=== PATIENT | female | born 1985 | race Caucasian/White ===

== ENCOUNTER 2019-09-29 08:02 | Emergency (ER) | payer OTHER, SELFPAY ==
[2019-09-29 08:10] VITALS: BP 105/62; PULSE 65; RESP 18; TEMP 36.9; O2SAT 99
--- NOTE | 2019-09-29 08:20 | ED.EAR ---
HPI - Ear Problem General Chief complaint: Ear Stated complaint: ear pain Time Seen by Provider: 09/29/19 08:13 Source: patient and RN notes reviewed Mode of arrival: ambulatory Limitations: no limitations History of Present Illness HPI Narrative: 34-year-old female presents with concern for bilateral ear pain for 3 days. Reports pain had been worse on the left, this morning woke up with right ear pain. Denies drainage from the ear, fever, cough. Reports occasional rhinorrhea and nasal congestion. Reports occasionally taking Claritin. Reports using [id number] eardrops last night with no relief. Complaint: ear pain Location: bilateral Related Data Home Medications Medication Instructions Recorded Confirmed fluoxetine 20 mg PO DAILY 09/29/19 09/29/19 Allergies Allergy/AdvReac Type Severity Reaction Status Date / Time morphine AdvReac Unknown Nausea and Verified 09/29/19 08:16 Vomiting Review of Systems Review of Systems: Narrative: CONSTITUTIONAL: Denies malaise, chills, sweats, or fever. EYES: Denies visual changes, redness, or discharge. ENT: Reports rhinorrhea, congestion, bilateral otalgia. Denies sinus pain, otalgia and sore throat. CARDIOVASCULAR: Denies chest pain, palpitations, or edema. RESPIRATORY: Denies cough or dyspnea. GASTROINTESTINAL: Denies abdominal pain, nausea, vomiting, diarrhea SKIN: Denies rash or itching. MUSCULOSKELETAL: Denies myalgia. NEUROLOGIC: Denies headache. All systems reviewed & are unremarkable except as noted in HPI and below PMFSH Comments At time of signature, agree with nursing past medical, surgical, social and family history. There is no relevant family history pertinent to the presenting complaint Exam Narrative: Exam Narrative: GENERAL: Well-appearing, well-nourished, and in no acute distress. HEAD: Normocephalic EYES: PERRLA, conjunctivae clear ENT: Nares clear, turbinates erythematous, clear discharge. Mucous membranes moist. TM pearly gamboa with dull light reflex bilaterally; no tragal tenderness. NECK: Supple. No lymphadenopathy CHEST: No respiratory distress, speaks in full sentences. HEART: Regular rate and rhythm. No murmur heard. SKIN: Warm, dry, no rash. NEURO: Alert and oriented x3. PSYCH: Normal mood and affect Course Course Emergency Course: Patient is aware of diagnosis, understands and agrees to treatment plan. Anticipatory guidance given. Patient agrees to follow-up as directed and is aware of reasons to seek care at the emergency department. Portions of this record may have been created with voice recognition software Vital Signs Vital signs: Vital Signs Temperature 98.5 F 09/29/19 08:10 Pulse Rate 65 09/29/19 08:10 Respiratory Rate 18 09/29/19 08:10 Blood Pressure 105/62 09/29/19 08:10 Pulse Oximetry 99 09/29/19 08:10 Temperature 98.5 F 09/29/19 08:10 Pulse Rate 65 09/29/19 08:10 Respiratory Rate 18 09/29/19 08:10 Blood Pressure 105/62 09/29/19 08:10 Pulse Oximetry 99 09/29/19 08:10 Reviewed. Medical Decision Making MDM Narrative Medical decision making narrative: Differential diagnosis considered: Strep pharyngitis, allergic rhinitis, upper respiratory tract infection, sinusitis, rhinosinusitis, nasopharyngitis. viral pharyngitis, otitis media, otitis externa, pneumonia, bronchitis, viral cough syndrome, viral syndrome, and influenza. Exam findings show no acute concerns or changes; patient is non-toxic appearing and is in no distress. Patient is appropriate for outpatient treatment and follow-up. Vital Signs Vital Signs: Vital Signs Temperature 98.5 F 09/29/19 08:10 Pulse Rate 65 09/29/19 08:10 Respiratory Rate 18 09/29/19 08:10 Blood Pressure 105/62 09/29/19 08:10 Pulse Oximetry 99 09/29/19 08:10 Temperature 98.5 F 09/29/19 08:10 Pulse Rate 65 09/29/19 08:10 Respiratory Rate 18 09/29/19 08:10 Blood Pressure 105/62 09/29/19 08:10 Pulse Oximetry 99 06
== END 2019-09-29 08:25 | disposition home or self-care (01) ==
PROVIDERS: Emergency Provider Nurse Practitioner; PCP Nurse Practitioner Family
DX: H92.03 Otalgia, bilateral (principal); F41.9 Anxiety disorder, unspecified
CPT/HCPCS: 99213; G0463

== ENCOUNTER 2020-12-17 08:56 | Emergency (ER) | payer OTHER, SELFPAY ==
[2020-12-17 09:01] VITALS: BP 108/74; PULSE 75; RESP 20; TEMP 36.6; O2SAT 98
--- NOTE | 2020-12-17 09:04 | ED.URI ---
HPI - URI/Sore Throat General Chief Complaint: Ear Stated Complaint: Left Ear pain Time Seen by Provider: 12/17/20 09:02 Source: patient and RN notes reviewed Mode of arrival: ambulatory History of Present Illness HPI Narrative: 35-year-old female presents to the [facility] with left ear pain since , 2 days ago. No other sinus symptoms. Had been using your oil with minimal to no relief. Has been taking ibuprofen. Denies fevers. Related Data Home Medications Medication Instructions Recorded Confirmed fluoxetine 40 mg PO DAILY 12/17/20 12/17/20 Allergies Allergy/AdvReac Type Severity Reaction Status Date / Time morphine AdvReac Unknown Nausea and Verified 12/17/20 09:08 Vomiting Review of Systems Review of Systems: All systems reviewed & are unremarkable except as noted in HPI and below Constitutional: Constitutional: Reports no additional constitutional complaints, Denies chills and Denies fever(s) Eyes: Eyes: Reports no additional eye complaints ENT: Reports as per HPI Comments: Left ear pain Cardiovascular: Cardiovascular: Reports no additional cardiovascular complaints and Denies chest pain Respiratory: Respiratory: Reports no additional respiratory complaints, Denies cough and Denies dyspnea Gastrointestinal: Gastrointestinal: Reports no additional gastrointestinal complaints, Denies abdominal pain, Denies nausea and Denies vomiting Genitourinary: Genitourinary: Reports no additional female genitourinary complaints Musculoskeletal: Musculoskeletal: Reports no additional musculoskeletal complaints Integumentary/Breasts: Skin/Breast: Reports system reviewed and no additional complaints, except as docu Neurologic: Reports system reviewed and no additional complaints, except as documented Psychiatric: Psychiatric: Reports no additional psychiatric complaints Allergic/Immunologic: Allergic/Immunologic: Reports no additional allergic/immunologic complaints, Denies lip swelling, Denies throat swelling, Denies tongue swelling and Denies wheezing [facility] Past Medical History Medical History (Updated 12/17/20 @ 09:15 by Anna Childress) Anxiety and depression Surgical History Surgical History (Updated 12/17/20 @ 09:11 by Anna Childress) H/O knee surgery Left knee June 2020 Social History Social History (Updated 12/17/20 @ 09:11 by Anna Childress) Smoking status: Never smoker Substance use: never Living arrangements: with family Additional living arrangements comments: and 3 children Occupation/Education: occupation Gender identity (if verbalized by the patient): Female Comments At the time of my signature, I reviewed and agree with the nursing past medical, surgical, social, and family history. There is no relevant family history pertinent to the patient complaint. Exam Const: General: healthy appearing, no acute distress and alert Nutritional Appearance: well nourished and obese Orientation/consciousness: patient oriented x3 HENMT: Head: normal to inspection Ears: external ears normal, Abnormal EAC present excessive cerumen on the left, erythema on the left and EAC tenderness on the left and TM abnormal erythematous on the left Face and sinus: normal facial exam Eyes: Conjunctivae: conjunctivae normal Pupils: Equal, round and reactive pupils present EOM: EOMs intact bilaterally Neck: Neck: normal visual inspection, no lymphadenopathy and no meningeal signs Chest: Chest palpation & inspection: normal inspection of the chest Resp: Effort & Inspection: normal respiratory effort Auscultation: clear to auscultation bilaterally Cardio: Rate: regular rate Rhythm: regular rhythm : General: Yes no CVA tenderness Skin: General skin exam: normal color Rashes: no rashes Wounds: no wounds Neuro: General: patient oriented x3, no meningeal signs and no focal motor deficits Extrem: General: normal to inspection and no pedal edema Course Course Em
== END 2020-12-17 09:16 | disposition home or self-care (01) ==
PROVIDERS: Emergency Provider Nurse Practitioner; PCP Nurse Practitioner Family
DX: H66.002 Acute suppurative otitis media without spontaneous rupture of ear drum, left ear (principal); F41.9 Anxiety disorder, unspecified; F32.9 Major depressive disorder, single episode, unspecified
CPT/HCPCS: 99213; G0463

== ENCOUNTER 2023-07-16 16:40 | Emergency (ER) | payer OTHER, BC, SELFPAY ==
[2023-07-16 16:48] VITALS: BP 121/74; PULSE 74; RESP 20; TEMP 36.8; O2SAT 100
--- NOTE | 2023-07-16 16:54 | ED.GENADULT ---
HPI - General Adult General Chief complaint: Urogenital-Female Stated complaint: Urinary Problem Source: patient, RN notes reviewed and old records reviewed Mode of arrival: ambulatory Limitations: no limitations History of Present Illness HPI narrative: 30-year-old female presents to [facility] with complaints of burning with urination with frequency, hematuria, suprapubic pain, lower back pain this started about 3 days ago. Patient states has been on amoxicillin for ear infection and thought it was getting yeast infection. Related Data Home Medications Medication Instructions Recorded Confirmed dulaglutide 4.5 mg/0.5 mL 4.5 mg subcut WEEKLY 07/16/23 07/16/23 subcutaneous pen injector (Trulicity) Allergies Allergy/AdvReac Type Severity Reaction Status Date / Time morphine AdvReac Unknown Nausea and Verified 07/16/23 16:55 Vomiting Review of Systems Constitutional: Constitutional: Reports no additional constitutional complaints, Denies body ache(s), Denies chills, Denies fatigue, Denies fever(s) and Denies headache(s) Eyes: Eyes: Reports no additional eye complaints and Denies blurry vision ENT: Reports system reviewed and no additional complaints, except as documented, Denies vertigo, Denies dizziness, Denies ear discharge, Denies otalgia, Denies facial pain, Denies headache(s), Denies nasal congestion, Denies nasal discharge, Denies sinus pain, Denies sinus pressure and Denies sore throat Cardiovascular: Cardiovascular: Reports no additional cardiovascular complaints, Denies chest pain, Denies chest pain at rest, Denies rapid heart rate and Denies dyspnea Respiratory: Respiratory: Reports no additional respiratory complaints, Denies chest congestion, Denies cough, Denies pain on inspiration, Denies pain with cough and Denies dyspnea Gastrointestinal: Gastrointestinal: Reports abdominal pain, Denies diarrhea, Denies nausea and Denies vomiting Genitourinary: Genitourinary: Reports hematuria, Reports nocturia and Reports dysuria Integumentary/Breasts: Skin/Breast: Denies rash Neurologic: Reports system reviewed and no additional complaints, except as documented, Denies vertigo, Denies dizziness and Denies headache(s) Endocrine: Endocrine: Denies fatigue PMFSH Past Medical History Medical History Anxiety and depression Surgical History Surgical History H/O knee surgery Left knee June 2020 Social History Social History Smoking status: Never smoker Substance use: never Living arrangements: with family Additional living arrangements comments: and 3 children Occupation/Education: occupation Gender identity (if verbalized by the patient): Female Comments At the time of my signature, I reviewed and agree with the nursing past medical, surgical, social, and family history. There is no relevant family history pertinent to the patient complaint. Exam Const: General: cooperative, healthy appearing, no acute distress and well nourished Nutritional Appearance: well nourished Orientation/consciousness: patient oriented x3 Limitations: no limitations HENMT: Head: normal to inspection and normocephalic Ears: external ears normal Face/Nose/Sinus: normal facial exam Face and sinus: normal facial exam Mouth: Yes Normal oral and palatal mucosa present, Yes oropharynx normal and Yes moist mucous membranes Eyes: General: appearance normal, both eyes and all related structures Sclera: sclerae normal Pupils: Equal, round and reactive pupils present Resp: Effort & Inspection: normal respiratory effort, able to speak in complete sentences, no audible wheezes, no cough, no respiratory distress and no retractions GI: GI Palp: Yes abdominal tenderness, Yes Soft to palpation, No Firmness to palpation present (GI), Yes Tender
== END 2023-07-16 17:10 | disposition home or self-care (01) ==
PROVIDERS: Emergency Provider Registered Nurse
DX: N30.01 Acute cystitis with hematuria (principal)
CPT/HCPCS: 81003; 87086; 87088; 99213; G0463

== ENCOUNTER 2024-01-18 10:52 | Emergency (ER) | payer OTHER, SELFPAY ==
[2024-01-18 10:58] VITALS: BP 104/71; PULSE 81; RESP 20; TEMP 36.9; O2SAT 100
--- NOTE | 2024-01-18 11:31 | ED.EAR ---
HPI - Ear Problem General Chief complaint: Ear Stated complaint: Left Ear Pain Time Seen by Provider: 01/18/24 11:20 Source: patient, RN notes reviewed and old records reviewed Mode of arrival: ambulatory Limitations: no limitations History of Present Illness HPI Narrative: 38 year old female who presents to [facility] care with complaints of left ear pressure for one week duration with some increased pain to left ear with no fevers and some decrease in hearing. Patient reports that he has no other upper respiratory symptoms of sinus congestion drainage, sore throat or cough. Patient has been taking Flonase nasal spray and also taking allergy medication. MD Complaint: ear pain, decreased hearing and other (pressure) Location: left ear Duration: constant Severity: moderate Discharge from ear: Reports no Treatment prior to arrival: other (flonase and allergy medication) Related Data Allergies Allergy/AdvReac Type Severity Reaction Status Date / Time morphine AdvReac Unknown Nausea and Verified 07/16/23 16:55 Vomiting Review of Systems Review of Systems: CONSTITUTIONAL: Denies malaise, chills, sweats, or fever. EYES: Denies visual changes, redness, or discharge. ENT: Reports no rhinorrhea, congestion, sinus pain, left otalgia and no sore throat. CARDIOVASCULAR: Denies chest pain, palpitations, or edema. RESPIRATORY: Reports no cough.? Denies dyspnea. GASTROINTESTINAL: Denies abdominal pain, nausea, vomiting, diarrhea SKIN: Denies rash or itching. MUSCULOSKELETAL: Denies myalgia. NEUROLOGIC: Denies headache. All systems reviewed & are unremarkable except as noted in HPI and below PMFSH Past Medical History Medical History Anxiety and depression Bronchitis Sinusitis Surgical History Surgical History H/O knee surgery Left knee June 2020 Social History Social History Smoking status: Never smoker Substance use: never Living arrangements: with family Additional living arrangements comments: and 3 children Occupation/Education: occupation Gender identity (if verbalized by the patient): Female Comments At time of signature, agree with nursing past medical, surgical, social and family history. There is no relevant family history pertinent to the presenting complaint Exam Narrative: GENERAL: Well-appearing, well-nourished, and in no acute distress. HEAD: Normocephalic EYES: PERRLA, conjunctivae clear ENT: Nares clear, turbinates edematous and erythematous, clear discharge. Mucous membranes moist. TM pearly gamboa with dull light reflex with some bulging of TM's bilaterally; no tragal tenderness. Oropharynx erythematous without lesions. Tonsils not enlarged and without exudate, no drooling, no hoarseness, no trismus, uvula midline. NECK: Supple. No lymphadenopathy CHEST: Clear to auscultation, breath sounds equal. No wheezing, rhonchi, rales, or stridor. No respiratory distress, speaks in full sentences no cough noted SAO2 100% on room air HEART: Regular rate and rhythm. No murmur heard. SKIN: Warm, dry, no rash. NEURO: Alert and oriented x3. PSYCH: Normal mood and affect Course Course Emergency Course: Patient is aware of diagnosis, understands and agrees to treatment plan.? Anticipatory guidance given.? Patient agrees to follow-up as directed and is aware of reasons to seek care at the emergency department. Portions of this record may have been created with voice recognition software Level of Care: Express Care Visit Vital Signs Vital signs: Vital Signs Temperature 36.9 C 01/18/24 10:58 Pulse Rate 81 01/18/24 10:58 Respiratory Rate 20 01/18/24 10:58 Blood Pressure 104/71 01/18/24 10:58 Pulse Oximetry 100 01/18/24 10:58 Oxygen Delivery Room Air 01/18/24 10:58 T
== END 2024-01-18 11:49 | disposition home or self-care (01) ==
PROVIDERS: Emergency Provider Registered Nurse
DX: H69.93 Unspecified Eustachian tube disorder, bilateral (principal)
CPT/HCPCS: 99213; G0463

== ENCOUNTER 2024-07-22 16:44 | Emergency (ER) | payer OTHER, SELFPAY ==
[2024-07-22 16:48] VITALS: BP 120/68; PULSE 73; RESP 20; TEMP 36.6; O2SAT 100
--- NOTE | 2024-07-22 17:10 | ED_ITS ---
HPI - Female Genitourinary General Chief complaint: [employer] Stated complaint: discomfort in the groin area Time Seen by Provider: 07/22/24 17:16 Source: patient and RN notes reviewed Mode of arrival: ambulatory Limitations: no limitations History of Present Illness HPI Narrative: 39-year-old female presented for complaint of pain and itching to vaginal area Along with foul odor for 4 days. Endorses symptoms started after dyspareunia. She is concerned for retained tampon. Says LMP approximately 1 week ago. patient denies specific concern for an STD, however she would like tested. Denies hematuria, nausea, vomiting, flank pain, constipation, diarrhea, fevers or chills. Related Data Allergies Allergy/AdvReac Type Severity Reaction Status Date / Time morphine AdvReac Unknown Nausea and Verified 07/22/24 16:58 Vomiting Review of Systems Review of Systems: CONSTITUTIONAL: Denies body aches, fever, chills, or sweats. CARDIOVASCULAR: Denies chest pain, palpitations, or edema. RESPIRATORY: Denies cough or dyspnea. GASTROINTESTINAL: Denies abdominal pain, nausea, vomiting, or diarrhea. GENITOURINARY: reports vaginal itching, odor denies dysuria, frequency, urgency, hematuria, flank pain SKIN: Denies rash MUSCULOSKELETAL: Denies back pain or myalgia. COUNTS INCLUDE 234 BEDS AT THE [facility] Past Medical History Medical History Anxiety and depression Bronchitis Sinusitis Surgical History Surgical History H/O knee surgery Left knee June 2020 Social History Social History Smoking status: Never smoker Substance use: never Living arrangements: with family Additional living arrangements comments: and 3 children Occupation/Education: occupation Gender identity (if verbalized by the patient): Female Comments At time of signature, I have reviewed and agree with nursing past medical, surgical, social and family history unless otherwise noted. Please see nursing chart for further information. There is no relevant family history pertinent to the presenting complaint Exam Narrative: GENERAL: Well-appearing ENT: Mucous membranes pink and moist. CHEST: No respiratory distress. Even unlabored. ABDOMEN: Soft, nontender, nondistended, normal active bowel sounds. No CVA tenderness : normal vaginal introitus, pink without foreign body, laceration or lesions. Scattered areas of erythema to cervix. Cervix closed. Thin yellow discharge noted. Tender. Chaperoned by Katie RN SKIN: Warm, dry, no rash. NEURO: No focal deficits. Alert and oriented x3. Gait steady. PSYCH: Normal affect. Course Course Emergency Course: Patient is aware of diagnosis, understands and agrees to treatment plan. Anticipatory guidance given. Patient agrees to follow-up as directed and is aware of reasons to seek care at the emergency department. Portions of this record may have been created with voice recognition software Level of Care: Express Care Visit Vital Signs Vital signs: Vital Signs Temperature 97.8 F 07/22/24 16:48 Pulse Rate 73 07/22/24 16:48 Respiratory Rate 20 07/22/24 16:48 Blood Pressure 120/68 07/22/24 16:48 Pulse Oximetry 100 07/22/24 16:48 Temperature 97.8 F 07/22/24 16:48 Pulse Rate 73 07/22/24 16:48 Respiratory Rate 20 07/22/24 16:48 Blood Pressure 120/68 07/22/24 16:48 Pulse Oximetry 100 07/22/24 16:48 Reviewed MDM - Female Genitourinary MDM Narrative Medical decision making narrative: Patient presenting with concern for pelvic pain and irritation. Swabs collected for BV, yeast, GC, chlamydia, trich. UA sent. Urine preg neg. Informed Pt will be contacted w/ results when they become available if they are positive. Discussed with patient that it takes up to 7 days for results of cultures to be released and explained that we may treat empirically at this time. Agreeable to treatment for BV at this time. I have instructed the patient to return to the ER at any time if there are any new or worsening symptoms. The patient expressed understanding of and agreement with this plan. Differential Diagnosis Differential diagnosis: Likely urinary tract infection, bacterial vaginosis, trichomoniasis, cervicitis, vaginitis and cystitis Lab Data Labs: Lab Results 07/22/24 07/22/24 Range/Units 17:35 17:43 POC Urine Color Yellow POC Urine Clarity Clear POC Urine pH 6.5 POC Ur Specif [place] 1.010 POC Urine Protein Negative (Negative) POC Ur Glucose (UA) Negative (Negative) POC Urine Ketones Negative (Negative) POC Urine Blood Negative (Negative) POC Urine Nitrite Negative (Negative) POC Urine Bilirubin Negative (Negative) POC Urine Urobilinogen 0.2 POC U Leukocyte Esteras Negative (Negative) POC Urine HCG, Qual Negative (Negative) Discharge Plan Discharge Clinical Impression: Vaginitis Patient Disposition: Home Condition: Stable Instructions: Antibiotic Form, Bacterial Vaginosis (ED) Additional Instructions: Your urine will be sent of for a culture to determine if bacteria is causing your symptoms. If the culture shows a UTI, you will be notified and an antibiotic will be called in for you. Tests been sent off to check for gonorrhea, chlamydia, and trichomonas infections as well as BV and yeast. You will be called if any of your tests come back positive. These tests can take up to 5-7 days to come back. You are treated for BV today. If your other tests come back positive you will need further treatment. You will need to notify any partners that you have so they can be tested and treated. To avoid reinfection, you are advised to abstain from sexual intercourse for 7 days (and any symptoms have resolved) to prevent transmission. If your tests come back negative and you are still experiencing symptoms, please follow-up with your PCP or Obgyn for further evaluation and treatment. If your symptoms worsen to include fever, abdominal pain, or back pain, please go to the hospital immediately. Patient Language: Nauruan Prescriptions: New metronidazole 500 mg tablet 500 mg PO Q12H 7 Days Qty: 14 0RF Follow-up/Referrals: Lindsay,MD Wayne [Primary Care Provider] - Time of Disposition: 17:29
--- OUTSIDE RECORDS SUMMARY | 2024-07-22 17:11 | XMS_ITS | Referral Summary ---
Author Organization [facility] Address [address] [place] [address] Care Team Providers Care Shellac Polisher Name Role Phone KristoferDyan azar Alesia REZA Unavailable [phone] Hammad Mueller Unavailable [phone] Wayne Montoya MD Primary Care Provider [phone] Encounters Date Type Department Care Team Description 07/13/2024 4:20 PM CDT Office Visit [facility] Orthopaedic Surgery [address] [place] [address] 2nd [address] [place] [address] Hussein Fay MD Left shoulder pain, unspecified chronicity (Primary Dx) 06/12/2024 7:48 AM SUPERVISOR DUMPING - 06/12/2024 11:59 PM SUPERVISOR DUMPING Hospital Encounter [facility] [address] [place] [address] Topher Henriquez MD Left shoulder pain, unspecified chronicity (Primary Dx) Discharge Disposition: Discharge to home or self care 06/05/2024 Telephone [facility] Orthopaedic Surgery [address] [place] [address] Medical Office Building [address] [place] [address] Topher Henriquez MD 06/05/2024 Telephone [facility] Orthopaedic Surgery [address] [place] [address] Medical Office Building [address] [place] [address] Topher Henriquez MD 05/29/2024 11:30 AM SUPERVISOR DUMPING Office Visit [facility] Orthopaedic Surgery [address] [place] [address] 2nd Floor [address] [place] [address] Hussein Fay MD Left shoulder pain, unspecified chronicity (Primary Dx) 05/27/2024 Telephone [facility] Orthopaedic Surgery [address] [place] [address] 2nd [address] [place] [address] Hussein Fay MD 05/21/2024 2:34 PM SUPERVISOR DUMPING - 05/21/2024 11:59 PM SUPERVISOR DUMPING Hospital Encounter [facility]iology [facility] [address] [place] [address] Hussein Fay MD Left shoulder pain, unspecified chronicity Discharge Disposition: Discharge to home or self care 05/13/2024 Orders Only [facility] Orthopaedic Surgery [address] [place] [address] 2[address] [place] [address] Hussein Fay MD 05/08/2024 9:07 AM SUPERVISOR DUMPING - 05/08/2024 11:59 PM SUPERVISOR DUMPING Hospital Encounter [facility] [address] [place] [address] Left shoulder pain, unspecified chronicity Discharge Disposition: Discharge to home or self care 05/08/2024 9:00 AM SUPERVISOR DUMPING Office Visit [facility] Orthopaedic Surgery [address] [place] [address] [address] [place] [phone] Hussein Fay MD Left shoulder pain, unspecified chronicity (Primary Dx) from Last 3 Months Allergies Active Allergy Reactions Criticality Noted Date Comments Iodinated Contrast Media Nausea & Vomiting Low 03/15 Morphine Stomach upset,Vomiting Low 10/06/2020 Medications Mounjaro 5 mg/0.5 mL pen injectorIndic ations:wt. loss Inject 0.5 mL (5 mg total) under the skin once a week Takes on 09/07/19 Active ibuprofen 200 mg tab/capIndica tions:Pain Take 2 tablet/capsule (400 mg total) by mouth every 6 (six) hours as needed for pain 2 tablets Active acetaminophen (TYLENOL) 500 mg tabletIndicat ions:Pain Take 2 tablets (1,000 mg total) by mouth every 6 (six) hours as needed for pain Active norgestimate- ethinyl estradioL (ORTHO TRI-CYCLEN LO) 0.18/0.215/0. 25 mg-25 mcg per tablet Take 1 tablet by mouth daily 28 tablet 12 05/07/19 24 2024 Discontinued Mounjaro 7.5 mg/0.5 mL pen injector injection INJECT 7.5 MG SUBCUTANEOUSLY ONCE A WEEK 04/10/202024 Discontinued meloxicam (MOBIC) 15 mg tablet Take 1 tablet (15 mg total) by mouth daily 30 tablet 05/13/192024 Discontinued Active Problems Problem Noted Date Diagnosed Date Subacromial bursitis of left shoulder joint 04/2024 Adhesive capsulitis of left shoulder 07/14/2024 BMI 24.0-24.9, adult 05/07/2023 Assessment & Plan (05/07/2023 3:59 PM SUPERVISOR DUMPING): Wt Readings from Last 3 Encounters: 05/07/23 63 kg (139 lb) 09/06/22 71 kg (156 lb 9.6 oz) 08/08/22 72.6 kg (160 lb) BMI Readings from Last 3 Encounters: 05/07/23 24.63 kg/m 04/22/23 27.74 kg/m 09/06/22 27.75 kg/m at goal of bmi <30 Continue diet and exercise BMI Follow-up includes: nutrition counseling and exercise counseling. TMJ (temporomandibular joint syndrome) Assessment & Plan (08/08/2022 3:22 PM CDT): Not at goal - worsening seevere pain at tiomes Will do course of flexeril Continue ibuprofen prn Can do course of prednisone 40 mg every day x 5 days and see if it improves Advised to seek chiro or dental advise Current vaping on some days 09/28/2021 Overview (09/28/2021): continue to cut back - can use a slow wean Assessment & Plan (05/07/2023 3:59 PM SUPERVISOR DUMPING): Improving but not at goal Anxiety 09/28/2021 Assessment & Plan (05/07/2023 3:53 PM SUPERVISOR DUMPING): Stable at this time No meds for now Assessment & Plan (09/28/2021 3:10 PM CDT): States anxiety is not well controlled - wants to continue the 30 mg of prozac as she states she has been doing well with it but when her family comes home, she states her anxiety levels increase and is unable to function properly at that time. Wants to try having a 2nd agent for anxiety. Will start wellbutrin. Was previously on buspar and she said that didn't work for her. Had a one time use of diazepam and she said worked but I would avoid bzd classdrugs and patient was in agreement. Sensorineural hearing loss (SNHL) of both ears 1 Assessment & Plan (04/12/2021 9:39 AM SUPERVISOR DUMPING): Hearing test - [facility] Flonase 2 sprays into each nostril while looking down over the sink, do not sniff in or blow nose after use for at least 30 minutes daily Referred otalgia of both ears 04/12/2021 Assessment & Plan (04/12/2021 9:40 AM SUPERVISOR DUMPING): TMJ dysfunction discussed and Handout provided Chronic pain of left knee 10/04/2020 Assessment & Plan (02/09/2021 9:05 AM CDT): Continue therapy per Ortho from recovery of her recent surgery Pes anserine bursitis 10/04/2020 Dislocation of left patella 06/16/2020 Overview (06/16/2020): Added automatically from request for surgery [id number] Patellar instability of left knee 06/16/2020 Overview (06/16/2020): Added automatically from request for surgery [id number] Depressive disorder 09/21/2016 Family history of heart disease 09/21/2016 Palpitations 09/21/2016 Tobacco dependence syndrome 09/21/2016 Resolved Problems Problem Noted Date Diagnosed Date Resolved Date Dislocation of jaw 08/08/2022 Dysfunction of both eustachian tubes 04/12/2021 09/28/2021 Assessment & Plan (04/12/2021 9:39 AM SUPERVISOR DUMPING): Hearing test - [facility] Flonase 2 sprays into each nostril while looking down over the sink, do not sniff in or blow nose after use for at least 30 minutes daily Class 1 obesity due to exces s calories without serious comorbidity with body mass index (BMI) of 34.0 to 34.9 in adult 02/09/2021 Assessment & Plan (08/08/2022 3:19 PM CDT): Wt Readings from Last 3 Encounters: 08/08/22 72.6 kg (160 lb) 02/26/22 88 kg (194 lb) 09/28/21 99.1 kg (218 lb 6.4 oz) BMI Readings from Last 3 Encounters: 08/08/22 28.35 kg/m 02/26/22 34.37 kg/m 09/28/21 38.70 kg/m Continue diet and exercise BMI Follow-up includes: nutrition counseling and exercise counseling. Has had singificant weight loss - now at goal Will continue trulicity for now 4.5 mg qweek Assessment & Plan (09/28/2021 3:10 PM CDT): BMI Follow-up includes: nutrition counseling and exercise counseling. Will check blood work and insulin/c-peptide Referred to weight loss management. Discussed diet and exercise Assessment & Plan (02/09/2021 9:07 AM CDT): The patient's weight of a BMI over 35 would qualify for weight loss surgery if she had associated comorbidities. We will call her insurance company and see if the recent orthopedic surgeries due to patellar tears secondary to her weight would qualify as an indication. If not we have discussed medical options for weight loss. Once we hear back from the insurance company will call her and discuss further. Smoker 10/04/2020 08/08/2022 Dyspnea on exertion 02/22/2017 08/09/19 Immunizations Immunization Administration Dates Next Due DTP 12/18/1990, 8,05/20/1986,02/18,1985 HiB 07/21/1987 Influenza, Quadrivalent, Spl it, Intramuscular 01/22/2020,04/14/2019,01/14/2018,02/01 Influenza, Unspecified 05/07/2023(Deferr ed: Patient Refused),02/26/2022(Deferred: Patient Refused),01/14/2020(Deferred: Patient Refused) MMR 12/18/1990,10/14/1986 OPV 12/18/1990, 8,05/20/1986,02/18,1985 Tdap 07/30/2022,04/14/2019 Social History Tobacco Use Types Packs/Day Years Used Date Smoking Tobacco: Former Cigarettes 2018 Vaping Started: 2018 Passive Smoke Exposure: Never Smokeless Tobacco: Never Alcohol Use Standard Drinks/Week Comments Yes 0 (1 standard drink = 0.6 oz pur e alcohol) AUDIT-C Answer Date Recorded Q1: How often do you have a drink containing alc ohol? Monthly or less 07/15/2024 Q2: How many drinks containi ng alcohol do you have on a typical day when you are drinking? 1 or 2 07/15/2024 Q3: How often do you have si x or more drinks on one occasion? Never 07/15/2024 PHQ-2 Answer Date Recorded PHQ-2 Total Score (If total score is 3 or more points, staff should administer the PHQ-9) 0 05/07/2023 Personal Safety Answer Date Recorded Have you ever been in or are you currently in a harmful physical or emotional relationship or is someone making you feel afraid or unsafe? Denies 06/12/2024 Comments No Sex and Gender Information Value Date Recorded Sex Assigned at Not on file Legal Sex Female 12:16 PM SUPERVISOR DUMPING Gender Identity Not on file Sexual Orientation Not on file Last Filed Vital Signs Vital Sign Reading Time Taken Comments Blood Pressure 102/62 06/12/2024 8:15 AM SUPERVISOR DUMPING Pulse 66 06/12/2024 8:15 AM SUPERVISOR DUMPING Temperature 36.8 C (98.2 F) 09/26/2023 4:31 PM CDT Respiratory Rate 16 06/12/2024 8:15 AM SUPERVISOR DUMPING Oxygen Saturation 100% 06/12/2024 8:15 AM SUPERVISOR DUMPING Inhaled Oxygen Concentration - - Weight 52.2 kg (115 lb) 07/15/2024 11:30 AM CDT Height 160 cm (5' 3 ) 07/15/2024 11:30 AM CDT Body Mass Index 20.37 07/15/2024 11:30 AM CDT Plan of Treatment Upcoming Encounters Date Type Department Care Team (Late st Contact Info) Description 07/28/2024 9:45 AM CDT Hospital Encounter [facility] the [facility] [address] [place] [id number] [place] [id number] [place] [address] 07/28/2024 9:45 AM CDT Anesthesia Event [facility] [address] [place] [address] Xiomy Fisher, HECTOR [address] [facility] [address] [phone] [place] [address] 07/28/2024 9:45 AM CDT - 07/28/2024 12:00 PM CDT Surgery [facility] [address] [place] [address] [place] [id number] [place] [address] LEFT SHOULDER ARTHROSCOPIC SUBACROMIAL DECOMPRESSION, SYNOVECTOMY, POSSIBLE OPEN BICEPS TENODESIS VS ARTHROSCOPIC SUPERIOR LABRAL REPAIR Scheduled Procedures Name Priority Associated Diagnoses Date/Ti me ARTHROSCOPY SHOULDER SUBACROMIAL DECOMPRESSION Subacromial bursitis of left shoulder joint Adhesive capsulitis of left shoulder 07/28/2024 9:45 AM CDT SYNOVECTOMY JOINT Subacromial bursitis of left shoulder joint Adhesive capsulitis of left shoulder 07/28/2024 9:45 AM CDT ARTHROSCOPY SHOULDER CAPSULORRHAPHY Subacromial bursitis of left shoulder joint Adhesive capsulitis of left shoulder 07/28/2024 9:45 AM CDT Medical Devices Implanted Type Area Jacker Device Identifier Shelf Expiration Date Model / Serial / Lot [employer] [id number] Seprafilm 6x5in Barrier Adhesion Sterile Disposable Latex Free - [id number] Implanted:Qty: 1 on 04/02/2019 by Irlanda Rodriguez MD at [facility] N/A: Ovary [employer] 10/13/2019 [id number] / / [id number] [employer] [id number] Tightrope Acl Right Device Fixation Titanium Uhmwpe Sterile Latex Free - [id number] Implanted:Qty: 1 on 06/30/2020 by Miko Flores MD at [facility] Left: Knee [employer] 08/12/2024 [id number] / / [id number] Ar[employer]rex Disposible Insturments Kit For Tenodesis Screw Implanted:Qty: 1 on 06/30/2020 by Miko Flores MD at [facility] Left: Knee [employer] 02/12/2025 [id number] / NA / [id number] Description:[facility] ITEM# [id number] IS FLAGGED IN [employer] AND SHOWING ACTIVE CHARGE CODE ASSIGNED [id number] COST EA. 175.00 [id number] Suture Knox Biocomposite Swivelock Implanted:Qty: 1 on 06/30/2020 by Miko Flores MD at [facility] Left: Knee [employer] 02/12/2022 [id number] / NA / [id number] Description:Item has been re quested to add to system and has been approved to charge patient and pay vendor. [id number] Suture Knox Biocomposite Swivelock Implanted:Qty: 1 on 06/30/2020 by Miko Flores MD at [facility] Left: Knee [employer] 02/12/2022 [id number] / NA / [id number] Description:Item has been re quested to add to system and has been approved to charge patient and pay vendor. [facility] [id number] Graft Soft Tissue Posterior Tibialis Tendon - [id number] Implanted:Qty: 1 on 06/30/2020 by Miko Flores MD at [facility] Left: Knee [facility] 02/28/2021 [id number] / / [id number] [employer] Ar-7535 Fiberlink Arthrex Suturetape 1.3mm Tape Suture Nonabsorbable - [id number] Implanted:Qty: 1 on 06/30/2020 by Miko Flores MD at [facility] Left: Knee [employer] 07/13/2024 [id number] / / [id number] Procedures Procedure Name Priority Date/Time Associated Diagnosis Comments FLUORO GUIDED INJECTION SHOULDER LEFT Schedule Routine, Read Routine (OP Routine) 06/12/2024 8:13 AM SUPERVISOR DUMPING Left shoulder pain, unspecified chronicity PA ARTHROCENTESIS ASPIR&/INJ MAJOR JT/BURSA W/O US Routine 05/29/2024 11:30 AM SUPERVISOR DUMPING Left shoulder pain, unspecified chronicity MRI SHOULDER LEFT WO CONTRAST Schedule Routine, Read Routine (OP Routine) 05/21/2024 3:49 PM SUPERVISOR DUMPING Left shoulder pain, unspecified chronicity XR SHOULDER LEFT 2 OR MORE VIEWS Schedule Routine, Read Routine (OP Routine) 05/08/2024 9:17 AM SUPERVISOR DUMPING Left shoulder pain, unspecified chronicity from Last 3 Months Results * FL Fluoro Guided Injection Shoulder Left (GLENOHUMERAL JOINT) (06/12/2024 8:13 AM SUPERVISOR DUMPING) Narrative [facility] - 06/12/2024 8:14 AM SUPERVISOR DUMPING The images from this study are not interpreted by Radiology. Please refer to the physician's procedure / OR operative note. us Hussein Fay MD IMG FLUOROSCOPY PROCEDUR ES Final Result [facility] * PA ARTHROCENTESIS ASPIR&/INJ MAJOR JT/BURSA W/O US (05/29/2024 11:30 AM SUPERVISOR DUMPING) Narrative Hussein Fay MD - 05/29/2024 11:30 AM SUPERVISOR DUMPING Hussein Fay MD 05/31/2024 12:47 PM Large Joint Injection: L subacromial bursa Performed by: Hussein Fay MD Authorized by: Hussein Fay MD Procedure Details: Location: Shoulder Site: L subacromial bursa Prep: patient was prepped and draped in usual sterile fashion Approach: Superior lateral Medications: 40 mg triamcinolone 40 mg/mL; 2 mL lidocaine 10 mg/mL (1 %); 2 mL BUPivacaine HCl 0.25 % (2.5 mg/mL) Patient tolerance: Patient tolerated the procedure with difficulty After Betadine prep to the posterolateral corner of the acromion, I injected 2 cc of 0.25% bupivacaine, 2 cc of 1% lidocaine and 40 mg of Kenalog. The patient tolerated the procedure well. us Hussein Fay MD IN CLINIC/BEDSIDE ORDERA BLES Final Result * MRI Shoulder Left WO Contrast (05/21/2024 3:49 PM SUPERVISOR DUMPING) Anatomical Region Laterality Modality Upper Extremities Left Magnetic Reson ance 05/21/2024 4:11 PM SUPERVISOR DUMPING Impressions 05/21/2024 4:46 PM SUPERVISOR DUMPING 1. Nondisplaced left posterior and superior labral tear extending from the bicipital anchor to the 8 o'clock position. 2. The rotator cuff is intact. Dictated by: Dionte Dunn D.O. The radiology attending physician has personally reviewed this study, and had reviewed and/or edited this written report and agrees with it. Electronically signed by: Marcelle Mandujano MD Narrative 05/21/2024 4:46 PM SUPERVISOR DUMPING EXAMINATION: MRI SHOULDER LEFT WO CONTRAST HISTORY: Left shoulder pain TECHNIQUE: Multiplanar multisequence noncontrast MR examination of the left shoulder was performed without intravenous contrast. COMPARISON: Radiographs dated 05/09/2023 FINDINGS: There is a type 1 acromion. The coracoacromial ligament is thin. There is no subacromial spur. The acromioclavicular joint is normal. There is mild subacromial subdeltoid bursitis. The rotator cuff muscle bulk is normal. The subscapularis is intact. The supraspinatus and infraspinatus cuff tendons are intact without evidence of tendinopathy or tear. There is no glenohumeral chondrosis. On this nonarthrographic evaluation, there is a nondisplaced posterior and superior labral tear extending from the bicipital anchor to the 8 o'clock position. The intra-articular biceps tendon is normal. There is a physiologic amount of fluid within the glenohumeral joint. No loose bodies are identified. The bone marrow signal is normal. Procedure Note Arcelia Mandujano MD - 05/21/2024 EXAMINATION: MRI SHOULDER LEFT WO CONTRAST HISTORY: Left shoulder pain TECHNIQUE: Multiplanar multisequence noncontrast MR examination of the left shoulder was performed without intravenous contrast. COMPARISON: Radiographs dated 05/09/2023 FINDINGS: There is a type 1 acromion. The coracoacromial ligament is thin. There is no subacromial spur. The acromioclavicular joint is normal. There is mild subacromial subdeltoid bursitis. The rotator cuff muscle bulk is normal. The subscapularis is intact. The supraspinatus and infraspinatus cuff tendons are intact without evidence of tendinopathy or tear. There is no glenohumeral chondrosis. On this nonarthrographic evaluation, there is a nondisplaced posterior and superior labral tear extending from the bicipital anchor to the 8 o'clock position. The intra-articular biceps tendon is normal. There is a physiologic amount of fluid within the glenohumeral joint. No loose bodies are identified. The bone marrow signal is normal. IMPRESSION: 1. Nondisplaced left posterior and superior labral tear extending from the bicipital anchor to the 8 o'clock position. 2. The rotator cuff is intact. Dictated by: Dionte Dunn D.O. The radiology attending physician has personally reviewed this study, and had reviewed and/or edited this written report and agrees with it. Electronically signed by: Marcelle Mandujano MD us Hussein Fay MD IMG MRI PROCEDURES Final Result * XR Shoulder Left 2 or More Views (05/08/2024 9:17 AM SUPERVISOR DUMPING) Anatomical Region Laterality Modality Upper Extremities, Shoulder Left Comp uted Radiography 05/08/2024 12:4 1 PM SUPERVISOR DUMPING Impressions 05/08/2024 5:03 PM SUPERVISOR DUMPING 1. No acute osseous abnormality of the left shoulder. Dictated by: Ramon Guo MD PHD The radiology attending physician has personally reviewed this study, and had reviewed and/or edited this written report and agrees with it. Electronically signed by: Keny Hernandez MD Narrative 05/08/2024 5:03 PM SUPERVISOR DUMPING EXAMINATION: XR SHOULDER LEFT 2 OR MORE VIEWS HISTORY: Left shoulder pain. FINDINGS: 4 exposures of the left shoulder with no available comparison. No acute fracture or dislocation. Preserved joint spaces. Normal alignment. Procedure Note Keny Hernandez MD - 05/08/2024 EXAMINATION: XR SHOULDER LEFT 2 OR MORE VIEWS HISTORY: Left shoulder pain. FINDINGS: 4 exposures of the left shoulder with no available comparison. No acute fracture or dislocation. Preserved joint spaces. Normal alignment. IMPRESSION: 1. No acute osseous abnormality of the left shoulder. Dictated by: Ramon Guo MD PHD The radiology attending physician has personally reviewed this study, and had reviewed and/or edited this written report and agrees with it. Electronically signed by: Keny Hernandez MD Hussein Fay MD [facility] XR PROCEDURES Final Result from Last 3 Months Insurance [facility] CHO[facility] PLUS [facility] PLUS Care Teams Shellac Polisher Relationship Specialty Start Date End Date Wayne Montoya MD [address] [place] [address] [address] [place] [address] PCP - General Family Medicine 02/26/22 Dyan Crisostomo PA [address] [place] [address] 07/20/19 Hammad Mueller PA [address] [place] [address] [address] [place] [address] Physician Ordnance Artificer Orthopedic Surgery 06/30/20
--- OUTSIDE RECORDS SUMMARY | 2024-07-22 17:11 | XMS_ITS | Clinical Summary ---
Author Organization [facility] Address [address] [place] [address] Phone Care Team Providers Care Medical And Scientific Illustrator Name Role Phone Wayne Montoya MD Primary Care Provider [phone] Allergies Active Allergy Reactions Criticality Noted Date Comments Iodinated Contrast Media Diarrhea 10/06/2020 Morphine Vomiting 10/06/2020 Medications FLUoxetine (PROZAC) 40 MG Capsule Take 40 mg by mouth daily. Active hydrOXYzine (ATARAX) 25 MG Tablet Take 25 mg by mouth every 6 hours as needed. Active diazePAM (VALIUM) 5 MG Tablet Take 1 Tablet by mouth every 8 hours as needed for Other (vertigo). 30 Tablet 10/06/2020 Active Immunizations Immunization Administration Dates Next Due TDAP Vaccine 07/30/2022 Social History Tobacco Use Types Packs/Day Years Used Date Smoking Tobacco: Former Smokeless Tobacco: Current Chew Tobacco Cessation:Ready to Q uit: Not Asked; Counseling Given: Not Answered Alcohol Use Standard Drinks/Week Comments Never 0 (1 standard drink = 0.6 oz pur e alcohol) occasionally socially Comments No Sex and Gender Information Value Date Recorded Sex Assigned at Not on file Legal Sex Female 3:03 PM MOTORBOAT MECHANIC INBOARD/OUTBOARD Gender Identity Not on file Sexual Orientation Not on file Last Filed Vital Signs Vital Sign Reading Time Taken Comments Blood Pressure 118/62 09/06/2022 8:58 PM CDT Pulse 69 09/06/2022 8:58 PM CDT Temperature 36.2 C (97.2 F) 09/06/2022 8:58 PM CDT Respiratory Rate 17 09/06/2022 8:58 PM CDT Oxygen Saturation 100% 09/06/2022 8:58 PM CDT Inhaled Oxygen Concentration - - Weight 70.8 kg (156 lb) 09/06/2022 6:12 PM CDT Height 160 cm (5' 3 ) 09/06/2022 6:12 PM CDT Body Mass Index 27.63 09/06/2022 6:12 PM CDT Plan of Treatment Health Maintenance Due Date Last Done Comments Hepatitis C Virus (HCV) Screening 1985 Hepatitis B Immunization (1 of 3 - 19+ 3-dose series) 2004 Pap Smear 2006 Cervical Cancer Screening (CCS) 2015 HPV/Cotest 2015 Influenza Immunization (#1) 2023 10/0 12/2019, 04/14/2019, 01/14/2018, Additional history exists SARS-COV-2 Immunization ( season) 2023 Respiratory Syncytial Virus (RSV) Immunization (Adult) (1 - 1-dose 75+ series) 2060 DTaP/Tdap/Td Immunization Discontinued 2022, 04/14/2019, 12/18/1990, Additional history exists Meningococcal Immunization (ACWY) Aged Out No longer eligible based on patient's age to complete this topic Pneumococcal Immunization Combined Aged Out No longer eligible based on patient's age to complete this topic Rotavirus Immunization Aged Out No lo nger eligible based on patient's age to complete this topic Insurance MEDICAID [facility] [employer] Care Teams Medical And Scientific Illustrator Relationship Specialty Start Date End Date Wayne Montoya MD [address] [address] PCP - General Benefit Specialist 09/06/22
--- OUTSIDE RECORDS SUMMARY | 2024-07-22 17:11 | XMS_ITS | Clinical Summary ---
Author Organization [facility] Address [address] [place] [address] Care Team Providers Care Cutting Machine Operator Helper Name Role Phone Andressa Dyan Alesia PA Unavailable [phone] Hammad Mueller Unavailable [phone] Wayne Montoya MD Primary Care Provider [phone] Allergies Active Allergy Reactions Criticality Noted Date [...] INJECT 7.5 MG SUBCUTANEOUSLY ONCE A WEEK 04/10/20 24 2024 Discontinued meloxicam (MOBIC) 15 mg tablet Take 1 tablet (15 mg total) by mouth daily 30 tablet 05/13/19 25 2024 Discontinued Active Problems Problem Noted Date Diagnosed Date Subacromial bursitis of left shoulder joint 04/2024 Adhesive capsulitis of left shoulder 07/14/2024 BMI 24.0-24.9, adult 05/07/2023 Assessment & Plan (05/07/2023 3:59 PM HOTBED LEVER OPERATOR): Wt Readings from Last 3 Encounters: 05/07/23 [...] wean Assessment & Plan (05/07/2023 3:59 PM HOTBED LEVER OPERATOR): Improving but not at goal Anxiety 09/28/2021 Assessment & Plan (05/07/2023 3:53 PM HOTBED LEVER OPERATOR): Stable at this time No meds for [...] 1 Assessment & Plan (04/12/2021 9:39 AM HOTBED LEVER OPERATOR): Hearing test - [facility] Flonase 2 sprays into each nostril while looking down over the sink, do not sniff in or blow nose after use for at least 30 minutes daily Referred otalgia of both ears 04/12/2021 Assessment & Plan (04/12/2021 9:40 AM HOTBED LEVER OPERATOR): TMJ dysfunction discussed and Handout provided Chronic pain of left knee 10/04/2020 Assessment & Plan (02/09/2021 9:05 AM CDT): Continue therapy per Ortho from recovery of her recent surgery Pes anserine bursitis 10/04/2020 Dislocation of left patella 06/16/2020 Overview (06/16/2020): Added automatically from request for surgery [id number] Patellar instability of left knee 06/16/2020 Overview (06/16/2020): Added automatically from request for surgery [id number] Depressive disorder 09/21/2016 Family history of heart disease 09/21/2016 Palpitations 09/21/2016 Tobacco dependence syndrome 09/21/2016 Resolved Problems Problem Noted Date Diagnosed Date Resolved Date Dislocation of jaw 08/08/2022 3 Dysfunction of both eustachian tubes 04/12/2021 09/28/2021 Assessment & Plan (04/12/2021 9:39 AM HOTBED LEVER OPERATOR): Hearing test - [facility] Flonase 2 sprays [...] 10/04/2020 08/08/2022 Dyspnea on exertion 02/22/2017 08/09/19 23 Encounters Date Type Department Care Team Description 07/13/2024 4:20 PM CDT Office Visit [facility] Orthopaedic Surgery [address] [place] [address] 2nd Floor [address] [place] [address] Hussein Fay MD Left shoulder pain, unspecified chronicity (Primary Dx) 06/12/2024 7:48 AM HOTBED LEVER OPERATOR - 06/12/2024 11:59 PM HOTBED LEVER OPERATOR Hospital Encounter [facility] [address] [place] [address] Topher Henriquez MD Left shoulder pain, unspecified chronicity (Primary Dx) Discharge Disposition: Discharge to home or self care 06/05/2024 Telephone [facility] Orthopaedic Surgery [facility] Office Building [address] [place] [address] Topher Henriquez MD 06/05/2024 Telephone [facility] Orthopaedic Surgery [facility] Office Building [address] [place] [address] Topher Henriquez MD 05/29/2024 11:30 AM HOTBED LEVER OPERATOR Office Visit [facility] Orthopaedic [address] 2[address] Floor [address] [place] [address] Hussein Fay MD Left shoulder pain, unspecified chronicity (Primary Dx) 05/27/2024 Telephone [facility] Orthopaedic Surgery [address] [place] [address] 2nd Floor [address] [place] [address] Hussein Fay MD 05/21/2024 2:34 PM HOTBED LEVER OPERATOR - 05/21/2024 11:59 PM HOTBED LEVER OPERATOR Hospital Encounter [facility] [address] [place] [address] Hussein Fay MD Left shoulder pain, unspecified chronicity Discharge Disposition: Discharge to home or self care 05/13/2024 Orders Only [facility] Orthopaedic Surgery [address] [place] [address] 2nd Floor [address] [place] [address] Hussein Fay MD 05/08/2024 9:07 AM HOTBED LEVER OPERATOR - 05/08/2024 11:59 PM HOTBED LEVER OPERATOR Hospital Encounter [facility] [address] [place] [address] Left shoulder pain, unspecified chronicity Discharge Disposition: Discharge to home or self care 05/08/2024 9:00 AM HOTBED LEVER OPERATOR Office Visit [address] 2nd Floor [address] [place] [address] Hussein Fay MD Left shoulder pain, unspecified chronicity (Primary Dx) from Last 3 Months Immunizations Immunization Administration Dates Next Due DTP 12/18/1990, 8,05/20/1986,02/18,1985 HiB 07/21/1987 Influenza, Quadrivalent, Spl it, Intramuscular 01/22/2020,04/14/2019,01/14/2018,02/01 Influenza, Unspecified 05/07/2023(Deferr ed: Patient Refused),02/26/2022(Deferred: Patient Refused),01/14/2020(Deferred: Patient Refused) MMR 12/18/1990,10/14/1986 OPV 12/18/1990, 8,05/20/1986,02/18,1985 Tdap 07/30/2022,04/14/2019 Surgical History Surgery Date Site/Laterality Comments LAPAROSCOPIC OVARIAN CYSTECTOMY 03/15/2019 - 04/14/2019 Right TONSILLECTOMY 04/15/2009 - 04/14/2010 TUBAL LIGATION 04/15/2011 - 04/14/2012 KNEE SURGERY 06/30/2020 Left open medial patellofemoral ligament reconstruction, arthroscopic knee lateral release and removal of loose body FLUORO GUIDED INJECTION SHOULDER LEFT 06/12/2024 Left Medical History Medical History Date Comments Ovarian cyst Depression Family History Medical History Relation Name Comments Alcohol abuse Father Arrhythmia Father Heart disease Father Diabetes Mother Cancer Other Diabetes Other Heart disease Other Asthma Son kidney problems Son Relation Name Status Comments Father Mother Other Son Alive Social History Tobacco Use Types Packs/Day Years [...] on file Legal Sex Female 12:16 PM HOTBED LEVER OPERATOR Gender Identity Not on file Sexual Orientation Not on file Obstetrics History Last Filed Vital Signs Vital Sign Reading Time Taken Comments Blood Pressure 102/62 06/12/2024 8:15 AM HOTBED LEVER OPERATOR Pulse 66 06/12/2024 8:15 AM HOTBED LEVER OPERATOR Temperature 36.8 C (98.2 F) 09/26/2023 4:31 PM CDT Respiratory Rate 16 06/12/2024 8:15 AM HOTBED LEVER OPERATOR Oxygen Saturation 100% 06/12/2024 8:15 AM HOTBED LEVER OPERATOR Inhaled Oxygen Concentration - - Weight 52.2 kg (115 lb) 07/15/2024 11:30 AM CDT Height 160 cm (5' 3 ) 07/15/2024 11:30 AM CDT Body Mass Index 20.37 07/15/2024 11:30 AM CDT Plan of Treatment Upcoming Encounters Date Type Department Care Team (Late st Contact Info) Description 07/28/2024 9:45 AM CDT Hospital Encounter [facility] [address] [place] [address] Hussein Fay MD [address] [place] [address] 07/28/2024 9:45 AM CDT Anesthesia Event [facility] the [facility]opedic [address] [address] Xiomy Fisher NP [address] [facility] [phone] [place] [address] 07/28/2024 9:45 AM CDT - 07/28/2024 12:00 PM CDT Surgery [facility] [address] [place] [address] [place] [address] [place] [address] LEFT SHOULDER ARTHROSCOPIC SUBACROMIAL DECOMPRESSION, SYNOVECTOMY, POSSIBLE [...] of left shoulder 07/28/2024 9:45 AM CDT Health Maintenance Due Date Last Done Comments Cervical Cancer Screening 1985 Hepatitis C Screening 1985 Varicella Vaccines (1 of 2 - 13+ 2-dose series) 1998 Hepatitis B Screening 2003 Regular Well Visit/Exam 18-64 2003 Depression Screening 05/07/2024 05/07/2023, 02/26/2022, 09/28/2021 Influenza Vaccine (Season Ended) 2024 01/22/2020, 04/14/2019, 01/14/2018, Additional history exists DTaP/Tdap/Td Vaccine (8 - Td or Tdap) 07/30/2032 07/30/2022, 04/14/2019, 12/18/1990, Additional history exists HPV Vaccines Aged Out No longer eligi ble based on patient's age to complete this topic Pneumococcal vaccine <65 Aged Out No longer eligible based on patient's age to complete this topic Medical Devices Implanted Type Area Drop Hammer Set Up Operator Device Identifier Shelf Expiration Date Model / Serial / Lot [employer] 569841 Seprafilm 6x5in Barrier Adhesion Sterile Disposable Latex Free - [id number] Implanted:Qty: 1 on 04/02/2019 by Irlanda Rodriguez MD at [facility] N/A: Ovary [employer] 10/13/2019 [id number] / / [id number] Ar[employer]rex [employer] Ar-[id number] Tightrope Acl Right Device Fixation Titanium Uhmwpe Sterile Latex Free - [id number] Implanted:Qty: 1 on 06/30/2020 by Miko Flores MD at [facility] Left: Knee [employer] 08/12/2024 [id number]-[id number] / / [id number] Arthrex Disposible Insturments Kit For Tenodesis Screw Implanted:Qty: 1 on 06/30/2020 by Miko Flores MD at [facility] Left: Knee [employer] 02/12/2025 [id number] / NA / [id number] Description:[facility] ITEM# [id number] IS FLAGGED IN SCCS AND SHOWING ACTIVE CHARGE CODE ASSIGNED 587338 COST EA. 175.00 [id number] Suture [place] Biocomposite Swivelock Implanted:Qty: 1 on 06/30/2020 by Miko Flores MD at [facility] Left: Knee [employer] 02/12/2022 [id number] / NA / [id number] Description:Item has been re quested to add to system and has been approved to charge patient and pay vendor. [id number] Suture [place] Biocomposite Swivelock Implanted:Qty: 1 on 06/30/2020 by Miko Flores MD at [facility] Left: Knee [employer] 02/12/2022 [id number] / NA / [id number] Description:Item has been re quested to add to system and has been approved to charge patient and pay vendor. [facility] [id number] Graft Soft Tissue Posterior Tibialis Tendon - [id number] Implanted:Qty: 1 on 06/30/2020 by Miko Flores MD at [facility] Left: Knee [facility] 02/28/2021 [id number] / / [id number] [employer] Ar-7535 Fiberlink Arthrex Suturetape 1.3mm Tape Suture Nonabsorbable - [id number] Implanted:Qty: 1 on 06/30/2020 by Miko Flores MD at [facility] Left: Knee [employer] 07/13/2024 [id number] / / [id number] Procedures Procedure Name Priority Date/Time Associated Diagnosis Comments FLUORO GUIDED INJECTION SHOULDER LEFT Schedule Routine, Read Routine (OP Routine) 06/12/2024 8:13 AM HOTBED LEVER OPERATOR Left shoulder pain, unspecified chronicity PA ARTHROCENTESIS ASPIR&/INJ MAJOR JT/BURSA W/O US Routine 05/29/2024 11:30 AM HOTBED LEVER OPERATOR Left shoulder pain, unspecified chronicity MRI SHOULDER LEFT WO CONTRAST Schedule Routine, Read Routine (OP Routine) 05/21/2024 3:49 PM HOTBED LEVER OPERATOR Left shoulder pain, unspecified chronicity XR SHOULDER LEFT 2 OR MORE VIEWS Schedule Routine, Read Routine (OP Routine) 05/08/2024 9:17 AM HOTBED LEVER OPERATOR Left shoulder pain, unspecified chronicity from Last 3 Months Results * FL Fluoro Guided Injection Shoulder Left (GLENOHUMERAL JOINT) (06/12/2024 8:13 AM HOTBED LEVER OPERATOR) Narrative [facility] - 06/12/2024 8:14 AM HOTBED LEVER OPERATOR The images from this study are not interpreted by Radiology. Please refer to the physician's procedure / OR operative note. us Hussein Fay MD IMG FLUOROSCOPY PROCEDUR ES Final Result [facility] * PA ARTHROCENTESIS ASPIR&/INJ MAJOR JT/BURSA W/O US (05/29/2024 11:30 AM HOTBED LEVER OPERATOR) Narrative Hussein Fay MD - 05/29/2024 11:30 AM HOTBED LEVER OPERATOR Hussein Fay MD 05/31/2024 12:47 PM Large [...] Shoulder Left WO Contrast (05/21/2024 3:49 PM HOTBED LEVER OPERATOR) Anatomical Region Laterality Modality Upper Extremities Left Magnetic Reson ance 05/21/2024 4:11 PM HOTBED LEVER OPERATOR Impressions 05/21/2024 4:46 PM HOTBED LEVER OPERATOR 1. Nondisplaced left posterior and superior labral tear extending from the bicipital anchor to the 8 o'clock position. 2. The rotator cuff is intact. Dictated by: Dionte Dunn D.O. The radiology attending physician has personally reviewed this study, and had reviewed and/or edited this written report and agrees with it. Electronically signed by: Marcelle Mandujano MD Narrative 05/21/2024 4:46 PM HOTBED LEVER OPERATOR EXAMINATION: MRI SHOULDER LEFT WO CONTRAST HISTORY: [...] it. Electronically signed by: Marcelle Mandujano MD Hussein Fay MD [facility] [place] PROCEDURES Final Result * XR Shoulder Left 2 or More Views (05/08/2024 9:17 AM HOTBED LEVER OPERATOR) Anatomical Region Laterality Modality Upper Extremities, Shoulder Left Comp uted Radiography 05/08/2024 12:4 1 PM HOTBED LEVER OPERATOR Impressions 05/08/2024 5:03 PM HOTBED LEVER OPERATOR 1. No acute osseous abnormality of the left shoulder. Dictated by: Ramon Guo MD PHD The radiology attending physician has personally reviewed this study, and had reviewed and/or edited this written report and agrees with it. Electronically signed by: Keny Heranndez MD [facility] 05/08/2024 5:03 PM HOTBED LEVER OPERATOR EXAMINATION: XR SHOULDER LEFT 2 OR MORE [...] by: Keny Hernandez MD Hussein Fay MD IMG XR PROCEDURES Final Result from Last 3 Months Insurance [facility] CHOICE PLUS [facility] CHOICE PLUS Care Teams Cutting Machine Operator Helper Relationship Specialty Start Date End Date Wayne Montoya MD [address] [place] [address] PCP - General Family Medicine 02/26/22 Dyan Crisostomo PA [address] [place] [address] 07/20/19 Hammad Mueller PA [address] [place] [address] [address] [place] [address] Physician Janitorial Maintenance Worker Orthopedic Surgery 06/30/20
[2024-07-22 17:45] LABS: EDUAAPPEAR Clear; EDUABILI Negative (Negative); EDUABLOOD Negative (Negative); EDUACOLOR1 Yellow; EDUAGLUCOSE Negative (Negative); EDUAKETONE Negative (Negative); EDUALEUKO Negative (Negative); EDUANITRATE Negative (Negative); EDUAPH 6.5; EDUAPROTEIN Negative (Negative); EDUAUROBILI 0.2
[2024-07-22 17:46] LABS: BEDSIDEPREGUCG Negative (Negative)
[2024-07-23 19:47] LABS: Trichomonas Vag PCR NOT DETECTED (NOT DETECTE)
[2024-07-23 20:09] LABS: Chlamydia trachomatis NOT DETECTED (NOT DETECTE); Neisseria gonorrhoeae PCR NOT DETECTED (NOT DETECTE)
[2024-07-24 22:53] LABS: Bacterial Vaginosis NEGATIVE (NEGATIVE)
== END 2024-07-22 17:50 | disposition home or self-care (01) ==
PROVIDERS: Emergency Provider Nurse Practitioner Family; PCP Family Medicine
DX: N76.0 Acute vaginitis (principal)
CPT/HCPCS: 81003; 81025; 81513; 87070; 87086; 87491; 87591; 87661; 99213; G0463

== ENCOUNTER 2024-10-30 15:37 | Emergency (ER) | payer MEDICAID, SELFPAY ==
--- OUTSIDE RECORDS SUMMARY | 2024-10-30 15:40 | XMS_ITS | Referral Summary ---
Author Organization [facility] Address [address] [place] [address] Care Team Providers Care Tile Decorator Name Role Phone Andressa Dyan Alesia COBB Unavailable [phone] Hammad Mueller Unavailable [phone] Wayne Montoya MD Primary Care Provider [phone] Encounters Date Type Department Care Team Description 09/11/2024 11:30 AM CDT Office Visit [facility] Orthopaedic Surgery [address] [place] [address] 2nd Floor [address] [place] [address] Hussein Fay MD Left shoulder pain, unspecified chronicity (Primary Dx) 08/07/2024 11:30 AM CDT Office Visit [facility] Orthopaedic Surgery [address] [place] [address] Floor [address] [place] [address] Hussein Fay MD Left shoulder pain, unspecified chronicity (Primary Dx) from Last 3 Months Allergies Active Allergy Reactions Criticality Noted Date Comments Iodinated Contrast Media Nausea & Vomiting Low 03/15 Morphine Stomach upset,Vomiting Low 10/06/2020 Medications Mounjaro 5 mg/0.5 mL pen injectorIndicat ions:wt. loss Inject 0.5 mL (5 mg total) under the skin once a week Takes on 4 Active ibuprofen 200 mg tab/capIndicati ons:Pain Take 2 tablet/capsule (400 mg total) by mouth every 6 (six) hours as needed for pain 2 tablets Active acetaminophen (TYLENOL) 500 mg tabletIndicatio ns:Pain Take 2 tablets (1,000 mg total) by mouth every 6 (six) hours as needed for pain Active oxyCODONE (ROXICODONE) 5 mg immediate release tabletIndicatio ns:Pain TAKE 1 TABLET EVERY 4-6 HOURS NEEDED FOR PAIN 40 tablet 5 Active HYDROcodone-thao taminophen (NORCO) 5-325 mg per tabletIndicatio ns:Pain TAKE 1-2 TABLETS EVERY 4-6 HOURS NEEDED FOR PAIN 20 tablet 5 Active predniSONE (DELTASONE) 10 mg tablet TAKE 3 TABLETS BID FOR 4 DAYS, TAKE 2 TABLETS BID FOR 3 DAYS, TAKE 1 TABLET BID FOR 3 DAYS 42 tablet 5 Active Active Problems Problem Noted Date Diagnosed Date Subacromial bursitis of left shoulder joint 04/2024 Adhesive capsulitis of left shoulder 07/14/2024 BMI 24.0-24.9, adult 05/07/2023 Assessment & Plan (05/07/2023 3:59 PM RN CLINICAL): Wt Readings from Last 3 Encounters: 05/07/23 63 kg (139 lb) 09/06/22 71 kg (156 lb 9.6 oz) 08/08/22 72.6 kg (160 lb) BMI Readings from Last 3 Encounters: 05/07/23 24.63 kg/m 04/22/23 27.74 kg/m 09/06/22 27.75 kg/m at goal of bmi <30 Continue diet and exercise BMI Follow-up includes: nutrition counseling and exercise counseling. TMJ (temporomandibular joint syndrome) 3 Assessment & Plan (08/08/2022 3:22 PM CDT): [...] wean Assessment & Plan (05/07/2023 3:59 PM RN CLINICAL): Improving but not at goal Anxiety 09/28/2021 Assessment & Plan (05/07/2023 3:53 PM RN CLINICAL): Stable at this time No meds for [...] 1 Assessment & Plan (04/12/2021 9:39 AM RN CLINICAL): Hearing test - [facility] Flonase 2 sprays into each nostril while looking down over the sink, do not sniff in or blow nose after use for at least 30 minutes daily Referred otalgia of both ears 04/12/2021 Assessment & Plan (04/12/2021 9:40 AM RN CLINICAL): TMJ dysfunction discussed and Handout provided Chronic pain of left knee 10/04/2020 Assessment & Plan (02/09/2021 9:05 AM CDT): Continue therapy per Ortho from recovery of her recent surgery Pes anserine bursitis 10/04/2020 Dislocation of left patella 06/16/2020 Overview (06/16/2020): Added automatically from request for surgery [id number] Patellar instability of left knee 06/16/2020 Overview (06/16/2020): Added automatically from request for surgery [id number] Depressive disorder 09/21/2016 Family history of heart disease 09/21/2016 Palpitations 09/21/2016 Tobacco dependence syndrome 09/21/2016 Resolved Problems Problem Noted Date Diagnosed Date Resolved Date Dislocation of jaw 08/08/2022 3 Dysfunction of both eustachian tubes 04/12/2021 09/28/2021 Assessment & Plan (04/12/2021 9:39 AM RN CLINICAL): Hearing test - [facility] Flonase 2 sprays [...] Years Used Date Smoking Tobacco: Former Cigarettes 1 - 2018 Vaping Started: 2018 Passive Smoke Exposure: [...] making you feel afraid or unsafe? Denies 07/28/2024 Comments No Sex and Gender Information Value Date Recorded Sex Assigned at Not on file Legal Sex Female 12:16 PM RN CLINICAL Gender Identity Not on file Sexual Orientation Not on file Last Filed Vital Signs Vital Sign Reading Time Taken Comments Blood Pressure 99/65 07/28/2024 11:05 AM CDT Pulse 62 07/28/2024 11:11 AM CDT Temperature 36 C (96.8 F) 07/28/2024 10:26 AM CDT Respiratory Rate 22 07/28/2024 11:11 AM CDT Oxygen Saturation 95% 07/28/2024 11:11 AM CDT Inhaled Oxygen Concentration - - Weight 53 kg (116 lb 12.8 oz) 07/28/2024 8:00 AM CDT Height 160 cm (5' 3) 07/28/2024 8:00 AM CDT Body Mass Index 20.69 07/28/2024 8:00 AM CDT Plan of Treatment Not on file Medical Devices Implanted Type Area Computer Game Programmer Device Identifier Shelf Expiration Date Model / Serial / Lot [employer] [id number] Seprafilm 6x5in Barrier Adhesion Sterile Disposable Latex Free - [id number] Implanted:Qty: 1 on 04/02/2019 by Irlanda Rodriguez MD at [facility] N/A: Ovary [employer] 10/13/2019 [id number] / / [id number] Ar[employer]rex [employer] Ar-[id number] Tightrope Acl Right Device Fixation Titanium Uhmwpe Sterile Latex Free - [id number] Implanted:Qty: 1 on 06/30/2020 by Miko Flores MD at [facility] Left: Knee [employer] 08/12/2024 [id number] / / [id number] Ar[employer]rex Disposible Insturments Kit For Tenodesis Screw Implanted:Qty: 1 on 06/30/2020 by Miko Flores MD at [facility] Left: Knee [employer] 02/12/2025 [id number] / NA / [id number] Description:[facility] ITEM# [id number] IS FLAGGED IN SCCS AND SHOWING ACTIVE CHARGE CODE ASSIGNED 666165 COST EA. 175.00 [id number] Suture [place] Biocomposite Swivelock Implanted:Qty: 1 on 06/30/2020 by Miko Flores MD at [facility] Left: Knee [employer] 02/12/2022 [id number] / NA / [id number] Description:Item has been re quested to add to system and has been approved to charge patient and pay vendor. [id number] Suture [place] Biocomposite Swivelock Implanted:Qty: 1 on 06/30/2020 by Miko Flores MD at [facility] Left: Knee [employer] 02/12/2022 [id number] / NA / [id number] Description:Item has been re quested to add to system and has been approved to charge patient and pay vendor. [facility] [id number] Graft Soft Tissue Posterior Tibialis Tendon - [id number] Implanted:Qty: 1 on 06/30/2020 by Miko Flores MD at [facility] Left: Knee [facility] 02/28/2021 [id number] / / [id number] [employer] Ar-7535 Fiberlink Arthrex Suturetape 1.3mm Tape Suture Nonabsorbable - [id number] Implanted:Qty: 1 on 06/30/2020 by Miko Flores MD at [facility] Left: Knee [employer] 07/13/2024 [id number]-7535 / / [id number] Insurance [facility] CHOICE PLUS [facility] H[facility]/PPO Address: [address] [address] [place] [address] IDPA Care Teams Tile Decorator Relationship Specialty Start Date End Date Wayne Montoya MD [address] [place] [address] PCP - General Family Medicine 02/26/22 Dyan Crisostomo PA [address] [place] [address] 07/20/19 Hammad Mueller PA [address] [place] [address] [address] [place] [address] Physician Director Of Field Sales Orthopedic Surgery 06/30/20
--- OUTSIDE RECORDS SUMMARY | 2024-10-30 15:40 | XMS_ITS | Clinical Summary ---
Author Organization [facility] Address [address] [place] [address] Care Team Providers Care Armature Straightener Name Role Phone Andressa Dyan Alesia PA Unavailable [phone] Hammad Mueller Unavailable [phone] Wayne Montoya MD Primary Care Provider [phone] Allergies Active Allergy Reactions Criticality Noted Date [...] TABLET BID FOR 3 DAYS 42 tablet Active Active Problems Problem Noted Date Diagnosed Date Subacromial bursitis of left shoulder joint 04/2024 Adhesive capsulitis of left shoulder 07/14/2024 BMI 24.0-24.9, adult 05/07/2023 Assessment & Plan (05/07/2023 3:59 PM PACKAGE DELIVERY DRIVER): Wt Readings from Last 3 Encounters: 05/07/23 [...] wean Assessment & Plan (05/07/2023 3:59 PM PACKAGE DELIVERY DRIVER): Improving but not at goal Anxiety 09/28/2021 Assessment & Plan (05/07/2023 3:53 PM PACKAGE DELIVERY DRIVER): Stable at this time No meds for [...] 1 Assessment & Plan (04/12/2021 9:39 AM PACKAGE DELIVERY DRIVER): Hearing test - [facility] Flonase 2 sprays into each nostril while looking down over the sink, do not sniff in or blow nose after use for at least 30 minutes daily Referred otalgia of both ears 04/12/2021 Assessment & Plan (04/12/2021 9:40 AM PACKAGE DELIVERY DRIVER): TMJ dysfunction discussed and Handout provided Chronic pain of left knee 10/04/2020 Assessment & Plan (02/09/2021 9:05 AM CDT): Continue therapy per Ortho from recovery of her recent surgery Pes anserine bursitis 10/04/2020 Dislocation of left patella 06/16/2020 Overview (06/16/2020): Added automatically from request for surgery [id number] Patellar instability of left knee 06/16/2020 Overview (06/16/2020): Added automatically from request for surgery [id number] Depressive disorder 09/21/2016 Family history of heart disease 09/21/2016 Palpitations 09/21/2016 Tobacco dependence syndrome 09/21/2016 Resolved Problems Problem Noted Date Diagnosed Date Resolved Date Dislocation of jaw 08/08/2022 3 Dysfunction of both eustachian tubes 04/12/2021 09/28/2021 Assessment & Plan (04/12/2021 9:39 AM PACKAGE DELIVERY DRIVER): Hearing test - [facility] Flonase 2 sprays [...] Description 09/11/2024 11:30 AM CDT Office Visit [facility] Orthopaedic Surgery [address] [place] [address] Hussein Fay MD Left shoulder pain, unspecified chronicity (Primary Dx) 08/07/2024 11:30 AM CDT Office Visit [facility] Orthopaedic Surgery [address] [place] [address] Hussein Fay MD Left shoulder [...] on file Legal Sex Female 12:16 PM PACKAGE DELIVERY DRIVER Gender Identity Not on file Sexual Orientation [...] 07/28/2024 8:00 AM CDT Plan of Treatment Health Maintenance Due Date Last Done Comments Cervical Cancer Screening 1985 Hepatitis C Screening 1985 Varicella Vaccines (1 of 2 - 13+ 2-dose series) 1998 Hepatitis B Screening 2003 Regular Well Visit/Exam 18-64 2003 Depression Screening 05/07/2024 05/07/2023, 02/26/2022, 09/28/2021 Influenza Vaccine (#1) 2024 , 04/14/2019, 01/14/2018, Additional history exists DTaP/Tdap/Td Vaccine (8 - Td or Tdap) 07/30/2032 07/30/2022, 04/14/2019, 12/18/1990, Additional history exists HPV Vaccines Aged Out No longer eligi ble based on patient's age to complete this topic Pneumococcal vaccine <65 Aged Out No longer eligible based on patient's age to complete this topic Medical Devices Implanted Type Area Cutter Brake Lining Device Identifier Shelf Expiration Date Model / Serial / Lot Genzyme Biosurgery 006369 Seprafilm 6x5in Barrier Adhesion Sterile Disposable Latex Free - [id number] Implanted:Qty: 1 on 04/02/2019 by Irlanda Rodriguez MD at [facility] N/A: Ovary [employer] 10/13/2019 [id number] / / [id number] Arthrex Inc [id number] Tightrope Acl Right Device Fixation Titanium Uhmwpe Sterile Latex Free - [id number] Implanted:Qty: 1 on 06/30/2020 by Miko Flores MD at [facility] Left: Knee [employer]rex Inc 08/12/2024 [id number] / / [id number] Arthrex Disposible Insturments Kit For Tenodesis Screw Implanted:Qty: 1 on 06/30/2020 by Miko Flores MD at [facility] Left: Knee [employer]rex Inc 02/12/2025 [id number] / NA / [id number] Description:[facility] ITEM# [id number] IS FLAGGED IN SCCS AND SHOWING ACTIVE CHARGE CODE ASSIGNED 039089 COST EA. 175.00 [id number] Suture [place] Biocomposite Swivelock Implanted:Qty: 1 on 06/30/2020 by Miko Flores MD at [facility] Left: Knee [employer] Inc 02/12/2022 [id number] / NA / [id number] Description:Item has been re quested to add to system and has been approved to charge patient and pay vendor. [id number] Suture [place] Biocomposite Swivelock Implanted:Qty: 1 on 06/30/2020 by Miko Flores MD at [facility] Left: Knee [employer] 02/12/2022 [id number] / NA / [id number] Description:Item has been re quested to add to system and has been approved to charge patient and pay vendor. [facility] [id number] Graft Soft Tissue Posterior Tibialis Tendon - [id number] Implanted:Qty: 1 on 06/30/2020 by Miko Flores MD at [facility] Left: Knee [facility] 02/28/2021 [id number] / / [id number] Ar[employer]rex Inc Ar-7535 Fiberlink Arthrex Suturetape 1.3mm Tape Suture Nonabsorbable - [id number] Implanted:Qty: 1 on 06/30/2020 by Miko Flores MD at [facility] Left: Knee [employer] 07/13/2024 [id number] / / [id number] Insurance [facility] CHOICE PLUS IDPA Care Teams Armature Straightener Relationship Specialty Start Date End Date Wayne Montoya MD [address] [place] [address] PCP - General Family Medicine 02/26/22 Dyan Crisostomo PA [address] [place] [address] 07/20/19 Hammad Mueller PA [address] [place] [address] Physician Primary Health Care Nurse Orthopedic Surgery 06/30/20
--- OUTSIDE RECORDS SUMMARY | 2024-10-30 15:40 | XMS_ITS | Clinical Summary ---
Author Organization [facility] Address [address] [place] [address] Phone Care Team Providers Care Light Industrial Supervisor Name Role Phone Wayne Montoya MD Primary Care Provider [phone] Allergies Active Allergy Reactions Criticality Noted Date [...] on file Legal Sex Female 3:03 PM LUNCHROOM ATTENDANT Gender Identity Not on file Sexual Orientation [...] 6:12 PM CDT Height 160 cm (5' 3) 09/06/2022 6:12 PM CDT Body Mass Index 27.63 09/06/2022 6:12 PM CDT Plan of Treatment Health Maintenance Due Date Last Done Comments Hepatitis C Virus (HCV) Screening 1985 Human Papillomavirus (HPV) Immunization (1 - 3-dose series) 2000 Hepatitis B Immunization (1 of 3 - 19+ 3-dose series) 2004 Pap Smear 2006 Cervical Cancer Screening (CCS) 2015 HPV/Cotest 2015 SARS-COV-2 Immunization ( season) 2023 Influenza Immunization (#1) 12/14/202412/2019, 04/14/2019, 01/14/2018, Additional history exists Respiratory Syncytial Virus (RSV) Immunization (Adult) (1 [...] age to complete this topic Insurance MEDICAID [facility] MEDICAID [facility] MEDICAID [facility] Care Teams Light Industrial Supervisor Relationship Specialty Start Date End Date Wayne Montoya MD [address] [place] [address] PCP - General Recreation Assistant 09/06/22
[2024-10-30 15:45] VITALS: BP 116/72; PULSE 72; RESP 18; TEMP 37.1; O2SAT 99
--- NOTE | 2024-10-30 15:51 | ED.SKABFB ---
HPI - Skin/Abscess/Foreign Bdy General Chief complaint: Skin/Abscess/Foreign Body Stated complaint: rash around nose/lips/eyes Time Seen by Provider: 10/30/24 15:46 Source: patient and RN notes reviewed Mode of arrival: ambulatory Limitations: no limitations History of Present Illness HPI narrative: 39-year-old female presents concern for a rash on her face. Reports this started around her nose, spread toward she can now is on both eyelids. She reports it is irritating. Reports her eyelids dorsal this morning. She denies vision changes. MD complaint: rash Related Data Allergies Allergy/AdvReac Type Severity Reaction Status Date / Time morphine AdvReac Unknown Nausea and Verified 07/22/24 16:58 Vomiting Review of Systems Review of Systems: CONSTITUTIONAL: Denies malaise, chills, sweats, or fever. EYES: Denies redness, or discharge. ENT: Denies rhinorrhea, congestion, swollen lips, swollen tongue CARDIOVASCULAR: Denies chest pain, palpitations, or edema. RESPIRATORY: Denies cough or dyspnea. GASTROINTESTINAL: Denies abdominal pain, nausea, vomiting SKIN: Reports rash around the nostrils, cheek, eyelids MUSCULOSKELETAL: Denies joint pain or myalgia. NEUROLOGIC: Denies headache. All systems reviewed & are unremarkable except as noted in HPI and below PMFSH Past Medical History Medical History Anxiety and depression Bronchitis Sinusitis Surgical History Surgical History H/O knee surgery Left knee June 2020 Social History Social History Smoking status: Never smoker Substance use: never Living arrangements: with family Additional living arrangements comments: and 3 children Occupation/Education: occupation Gender identity (if verbalized by the patient): Female Comments At time of signature, agree with nursing past medical, surgical, social and family history. There is no relevant family history pertinent to the presenting complaint Exam Narrative: GENERAL: Well-appearing, well-nourished, and in no acute distress. HEAD: Normocephalic, atraumatic. EYES: PERRLA, conjunctivae clear, and EOMI. ENT: Mucous membranes moist. Oropharynx without edema, erythema or lesions. NECK: Supple. No lymphadenopathy CHEST: Clear to auscultation. No respiratory distress. HEART: Regular rate and rhythm. SKIN: Warm, dry. Erythema and mild irritated skin noted around bilateral nares, left cheek, small patch on each eyelid. NEURO: Alert and oriented x3. PSYCH: Normal mood and affect Course Course Emergency Course: Patient is aware of diagnosis, understands and agrees to treatment plan. Anticipatory guidance given. Patient agrees to follow-up as directed and is aware of reasons to seek care at the emergency department. Portions of this record may have been created with voice recognition software Level of Care: Express Care Visit Vital Signs Vital signs: Vital Signs Temperature 98.7 F 10/30/24 15:45 Pulse Rate 72 10/30/24 15:45 Respiratory Rate 18 10/30/24 15:45 Blood Pressure 116/72 10/30/24 15:45 Pulse Oximetry 99 10/30/24 15:45 Oxygen Delivery Room Air 10/30/24 15:45 Temperature 98.7 F 10/30/24 15:45 Pulse Rate 72 10/30/24 15:45 Respiratory Rate 18 10/30/24 15:45 Blood Pressure 116/72 10/30/24 15:45 Pulse Oximetry 99 10/30/24 15:45 Oxygen Delivery Room Air 10/30/24 15:45 Reviewed. MDM - Skin/Abscess/Foreign Bdy MDM Narrative Medical decision making narrative: Does not appear at this time to be erythema multiforme, bullous, SJS, TEN; no evidence at this time to suggest RMSF, endocarditis or Lyme disease; patient looks well, nontoxic and is tolerating oral intake; no neurologic signs or symptoms; no headache, photophobia or neck pain; afebrile; appropriate for initial outpatient treatment; discussed the importance of follow-up, patient agrees; question, viral exanthema, contact dermatitis, allergic dermatitis, eczema, urticaria, impetigo. No soft palate or uvula edema, no tongue, lip edema or other mucosal involvement, no respiratory compromise, no stridor, no wheezing, no wheezing, no history of syncope, no hypotension, no nausea, vomiting, or diarrhea. Instructed patient to go to nearest ER immediately for any worsening symptoms including but not limited to: fever, spreading rash, pain, sore throat, headache, dizziness, chest pain, trouble breathing, or any symptoms concerning to the patient. Critical Care Time Critical Care Time Critical Care Time: No Discharge Plan Discharge Clinical Impression: Acute eruption of skin Patient Disposition: Home Condition: Stable Instructions: Impetigo (ED) Additional Instructions: Wash the area with gentle soap and water only. Use skin appointment as prescribed, you can also apply lwgd-voj-dgohrhn hydrocortisone cream for any itching or swelling. Avoid scratching when possible to prevent worsening of the condition and disruption of the skin that could lead to bacterial infection To relieve itching, place a cool washcloth or some ice over the area that itches, rather than scratching Follow up with primary care provider or seek ER if you have trouble breathing, become hoarse, or start wheezing, develop belly cramps, vomiting or feel dizzy. Patient Language: Estonian Prescriptions: New mupirocin 2 % ointment 1 applic topical BID 7 Days Qty: 22 0RF Follow-up/Referrals: Lindsay,MD Wayne [Primary Care Provider] - Time of Disposition: 15:53
== END 2024-10-30 15:57 | disposition home or self-care (01) ==
PROVIDERS: Emergency Provider Nurse Practitioner; PCP Family Medicine
DX: R21 Rash and other nonspecific skin eruption (principal)
CPT/HCPCS: 99213; G0463

== ENCOUNTER 2024-11-14 08:48 | Emergency (ER) | payer MEDICAID, SELFPAY ==
--- OUTSIDE RECORDS SUMMARY | 2024-11-14 08:50 | XMS_ITS | Clinical Summary ---
Author Organization [facility] Address [address] [place] [address] Care Team Providers Care Video Manager Name Role Phone Andressa Dyan Alesia PA Unavailable [phone] Hammad Mueller Unavailable Wayne Montoya MD Primary Care Provider [phone] Allergies Active Allergy Reactions Criticality Noted Date [...] 05/07/2023 Assessment & Plan (05/07/2023 3:59 PM LINE MAINTENANCE TECHNICIAN): Wt Readings from Last 3 Encounters: 05/07/23 [...] wean Assessment & Plan (05/07/2023 3:59 PM LINE MAINTENANCE TECHNICIAN): Improving but not at goal Anxiety 09/28/2021 Assessment & Plan (05/07/2023 3:53 PM LINE MAINTENANCE TECHNICIAN): Stable at this time No meds for [...] 1 Assessment & Plan (04/12/2021 9:39 AM LINE MAINTENANCE TECHNICIAN): Hearing test - [facility] Flonase 2 sprays into each nostril while looking down over the sink, do not sniff in or blow nose after use for at least 30 minutes daily Referred otalgia of both ears 04/12/2021 Assessment & Plan (04/12/2021 9:40 AM LINE MAINTENANCE TECHNICIAN): TMJ dysfunction discussed and Handout provided Chronic pain of left knee 10/04/2020 Assessment & Plan (02/09/2021 9:05 AM CDT): Continue therapy per Ortho from recovery of her recent surgery Pes anserine bursitis 10/04/2020 Dislocation of left patella 06/16/2020 Overview (06/16/2020): Added automatically from request for surgery [id number] Patellar instability of left knee 06/16/2020 Overview (06/16/2020): Added automatically from request for surgery [id number] Depressive disorder 09/21/2016 Family history of heart disease 09/21/2016 Palpitations 09/21/2016 Tobacco dependence syndrome 09/21/2016 Resolved Problems Problem Noted Date Diagnosed Date Resolved Date Dislocation of jaw 08/08/2022 3 Dysfunction of both eustachian tubes 04/12/2021 09/28/2021 Assessment & Plan (04/12/2021 9:39 AM LINE MAINTENANCE TECHNICIAN): Hearing test - [facility] Flonase 2 sprays [...] Description 09/11/2024 11:30 AM CDT Office Visit [facility] Orthopaedic Surgery [address] [place] [address] Hussein Fay MD Left shoulder pain, unspecified [...] Used Date Smoking Tobacco: Former Cigarettes 1 2 - 2018 Vaping Started: 2018 Passive Smoke [...] on file Legal Sex Female 12:16 PM LINE MAINTENANCE TECHNICIAN Gender Identity Not on file Sexual Orientation [...] Screening 2003 Regular Well Visit/Exam 18-64 2003 HPV Vaccines (1 - 3-dose SCDM series) 2012 Depression Screening 05/07/2024 05/07/2023, 02/26/2022, 09/28/2021 Influenza Vaccine (#1) 2024 , 04/14/2019, 01/14/2018, Additional history exists DTaP/Tdap/Td Vaccine (8 - Td or Tdap) 07/30/2032 07/30/2022, 04/14/2019, 12/18/1990, Additional history exists Pneumococcal vaccine <65 Aged Out No longer eligible based on patient's age to complete this topic Medical Devices Implanted Type Area Double Needle Stitcher Device Identifier Shelf Expiration Date Model / Serial / Lot [employer] 704330 Seprafilm 6x5in Barrier Adhesion Sterile Disposable Latex Free - [id number] Implanted:Qty: 1 on 04/02/2019 by Irlanda Rodriguez MD at [facility] N/A: Ovary [employer] 10/13/2019 [id number] / / [id number] Ar[employer]rex Inc Ar-[id number] Tightrope Acl Right Device Fixation Titanium Uhmwpe Sterile Latex Free - [id number] Implanted:Qty: 1 on 06/30/2020 by Miko Flores MD at [facility] Left: Knee [employer] 08/12/2024 AR-1588RT / / [id number] Ar[employer]rex Disposible Insturments Kit For Tenodesis Screw Implanted:Qty: 1 on 06/30/2020 by Miko Flores MD at [facility] Left: Knee [employer] 02/12/2025 [id number] / NA / [id number] Description:[facility] ITEM# [id number] IS FLAGGED IN SCCS AND SHOWING ACTIVE CHARGE CODE ASSIGNED 258033 COST EA. 175.00 [id number] Suture [place] Biocomposite Swivelock Implanted:Qty: 1 on 06/30/2020 by Miko Flores MD at [facility] Left: Knee [employer] 02/12/2022 [id number] / NA / [id number] Description:Item has been re quested to add to system and has been approved to charge patient and pay vendor. [id number] Suture [place] Biocomposite Swivelock Implanted:Qty: 1 on 06/30/2020 by Miko Flores MD at [facility] Left: Knee [employer] 02/12/2022 [id number] / NA / [id number] Description:Item has been re quested to add to system and has been approved to charge patient and pay vendor. [facility] [id number] Graft Soft Tissue Posterior Tibialis Tendon - [id number] Implanted:Qty: 1 on 06/30/2020 by Miko Flores MD at [facility] Left: Knee [facility] 02/28/2021 [id number] / / [id number] Ar[employer] Inc Ar-7535 Fiberlink Arthrex Suturetape 1.3mm Tape Suture Nonabsorbable - [id number] Implanted:Qty: 1 on 06/30/2020 by Miko Flores MD at [facility] Left: Knee [employer] 07/13/2024 AR-7535 / / [id number] Insurance [facility] [id number] [place] [address] [facility] CHOICE PLUS IDPA Care Teams Video Manager Relationship Specialty Start Date End Date Wayne Montoya MD [address] [place] [place] [address] PCP - General Family Medicine 02/26/22 Dyan Crisostomo PA [address] [facility] [place] [address] 07/20/19 Hammad Mueller PA [address] [place] [address] [place] [address] Physician Strategy Intern Orthopedic Surgery 06/30/20
--- OUTSIDE RECORDS SUMMARY | 2024-11-14 08:50 | XMS_ITS | Clinical Summary ---
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
--- OUTSIDE RECORDS SUMMARY | 2024-11-14 08:50 | XMS_ITS | Referral Summary ---
Author Organization [facility] Address [address] [place] [address] Care Team Providers Care Piercing Artist Name Role Phone Andressa Dyan Alesia COBB Unavailable [phone] Hammad Mueller Unavailable [phone] Wayne Montoya MD Primary Care Provider [phone] Encounters Date Type Department Care Team Description 09/11/2024 11:30 AM CDT Office Visit [facility] Orthopaedic Surgery [address] [place] [address] [address] [place] [address] Hussein Fay MD Left shoulder pain, unspecified chronicity (Primary Dx) from Last 3 Months Allergies Active Allergy Reactions Criticality Noted Date Comments Iodinated Contrast Media Nausea & Vomiting Low 03/15 Morphine Stomach upset,Vomiting Low 10/06/2020 Medications Mosnowro 5 mg/0.5 mL pen injectorIndicat ions:wt. loss [...] 05/07/2023 Assessment & Plan (05/07/2023 3:59 PM PAIL BAILER): Wt Readings from Last 3 Encounters: 05/07/23 [...] wean Assessment & Plan (05/07/2023 3:59 PM PAIL BAILER): Improving but not at goal Anxiety 09/28/2021 Assessment & Plan (05/07/2023 3:53 PM PAIL BAILER): Stable at this time No meds for [...] 1 Assessment & Plan (04/12/2021 9:39 AM PAIL BAILER): Hearing test - [facility] Flonase 2 sprays into each nostril while looking down over the sink, do not sniff in or blow nose after use for at least 30 minutes daily Referred otalgia of both ears 04/12/2021 Assessment & Plan (04/12/2021 9:40 AM PAIL BAILER): TMJ dysfunction discussed and Handout provided Chronic pain of left knee 10/04/2020 Assessment & Plan (02/09/2021 9:05 AM CDT): Continue therapy per Ortho from recovery of her recent surgery Pes anserine bursitis 10/04/2020 Dislocation of left patella 06/16/2020 Overview (06/16/2020): Added automatically from request for surgery [id number] Patellar instability of left knee 06/16/2020 Overview (06/16/2020): Added automatically from request for surgery [id number] Depressive disorder 09/21/2016 Family history of heart disease 09/21/2016 Palpitations 09/21/2016 Tobacco dependence syndrome 09/21/2016 Resolved Problems Problem Noted Date Diagnosed Date Resolved Date Dislocation of jaw 08/08/2022 3 Dysfunction of both eustachian tubes 04/12/2021 09/28/2021 Assessment & Plan (04/12/2021 9:39 AM PAIL BAILER): Hearing test - [facility] Flonase 2 sprays [...] 08/08/2022 Dyspnea on exertion 02/22/2017 08/09/19 23 Immunizations Immunization Administration Dates Next Due DTP [...] on file Legal Sex Female 12:16 PM PAIL BAILER Gender Identity Not on file Sexual Orientation [...] on file Medical Devices Implanted Type Area Mosaic Tile Maker Device Identifier Shelf Expiration Date Model / Serial / Lot [employer] 678082 Seprafilm 6x5in Barrier Adhesion Sterile Disposable Latex Free - [id number] Implanted:Qty: 1 on 04/02/2019 by Irlanda Rodriguez MD at [facility] N/A: Ovary [employer] 10/13/2019 [id number] / / [id number] Ar[employer]rex Inc Ar-1588rt Tightrope Acl Right Device Fixation Titanium Uhmwpe Sterile Latex Free - [id number] Implanted:Qty: 1 on 06/30/2020 by Miko Flores MD at [facility] Left: Knee [employer] 08/12/2024 AR-1588RT / / [id number] Ar[employer]rex Disposible Insturments Kit For Tenodesis Screw Implanted:Qty: 1 on 06/30/2020 by Miko Flores MD at [facility] Left: Knee [employer] 02/12/2025 [id number] / NA / [id number] Description:[facility] ITEM# [id number] IS FLAGGED IN SCCS AND SHOWING ACTIVE CHARGE CODE ASSIGNED 508146 COST EA. 175.00 [id number] Suture [place] Biocomposite Swivelock Implanted:Qty: 1 on 06/30/2020 by iMko Flores MD at [facility] Left: Knee [employer] 02/12/2022 [id number] / NA / [id number] Description:Item has been re quested to add to system and has been approved to charge patient and pay vendor. [id number] Suture [place] Biocomposite Swivelock Implanted:Qty: 1 on 06/30/2020 by Miko Flores MD at [facility] Left: Knee [employer] 02/12/2022 [id number] / NA / [id number] Description:Item has been re quested to add to system and has been approved to charge patient and pay vendor. [facility] [id number] Graft Soft Tissue Posterior Tibialis Tendon - [id number] Implanted:Qty: 1 on 06/30/2020 by Miko Flores MD at [facility] Left: Knee [facility] 02/28/2021 [id number] / / [id number] Ar[employer] Ar-7535 Fiberlink Ar[employer]rex Suturetape 1.3mm Tape Suture Nonabsorbable - [id number] Implanted:Qty: 1 on 06/30/2020 by Miko Flores MD at [facility] Left: Knee [employer] 07/13/2024 AR-7535 / / [id number] Insurance [facility] PLAN [facility] CHOICE PLUS [facility] HMO/PPO Address: [address] [address] [place] [address] IDPA Care Teams Piercing Artist Relationship Specialty Start Date End Date Wayne Montoya MD [address] [place] [address] [place] [address] PCP - General Family Medicine 02/26/22 Dyan Crisostomo PA [address] [place], [place] [address] 07/20/19 Hammad Mueller PA [address], [place] [address] Physician Back Panel Padder Orthopedic Surgery 06/30/20
[2024-11-14 08:51] VITALS: BP 109/61; PULSE 71; RESP 18; TEMP 36.1; O2SAT 100
--- NOTE | 2024-11-14 09:19 | ED.GENADULT ---
HPI - General Adult General Chief complaint: Skin/Abscess/Foreign Body Stated complaint: Rash Source: patient Mode of arrival: ambulatory Limitations: no limitations History of Present Illness HPI narrative: Patient presents for evaluation of her pruritic rash to the buttocks, and extremities x4. Nine days ago she was exposed to poison bhumika. The following day she developed the skin rash. She has tried several therapies including Benadryl, calamine, bleach bath, bathing with Carmen dish soap. Her symptoms persist. No difficulty breathing or swallowing. She is diabetic and recently ran out of [employer]. Her BS are well controlled at home. Related Data Home Medications ?Medication ?Instructions ?Recorded ?Confirmed ?Last Taken ?Type Trulicity 11/14/24 Unknown History Allergies Allergy/AdvReac Type Severity Reaction Status Date / Time morphine AdvReac Unknown Nausea and Verified 07/22/24 16:58 Vomiting Review of Systems Review of Systems: CONSTITUTIONAL: Denies fever, chills, or sweats. EYES: Denies visual changes, redness, or discharge. ENT: Denies rhinorrhea, congestion, sore throat, or otalgia. CARDIOVASCULAR: Denies chest pain, palpitations, or edema. RESPIRATORY: Denies cough or dyspnea. GASTROINTESTINAL: Denies abdominal pain, nausea, vomiting, or diarrhea. GENITOURINARY: Denies dysuria or hematuria. SKIN: Reports pruritic rash to buttocks and extremities x 4. MUSCULOSKELETAL: Denies back pain, joint pain, or myalgia. NEUROLOGIC: Denies headache, numbness, dizziness, or weakness. PSYCHIATRIC: Denies anxiety or depression. PMFSH Past Medical History Medical History Bronchitis Sinusitis Anxiety and depression Surgical History Surgical History H/O knee surgery Left knee June 2020 Social History Social History Smoking status: Never smoker Substance use: never Living arrangements: with family Additional living arrangements comments: and 3 children Occupation/Education: occupation Gender identity (if verbalized by the patient): Female Exam Narrative: GENERAL: Well-appearing, well-nourished, and in no acute distress. HEAD: Normocephalic, atraumatic. EYES: PERRLA and EOMI. ENT: Nares clear, no rhinorrhea or epistaxis. Mucous membranes moist. Oropharynx without tonsillar hypertrophy exudate or other lesions. Bilateral TMs pearly gamboa nonbulging NECK: Supple. No adenopathy or masses. No carotid bruits or JVD CHEST: Clear to auscultation. No respiratory distress. No wheezes rales or rhonchi HEART: Regular rate and rhythm. No murmur heard. Normal peripheral pulses. ABDOMEN: Soft, nontender, nondistended, normal active bowel sounds. EXTREMITIES: Normal range of motion. No edema. SKIN: There are erythematous macules and vesicles noted to the upper and bilateral lower extremities NEURO: No focal deficits. Alert and oriented x3. PSYCH: Normal mood and affect. Course Course Emergency Course: This is a 39-year-old female who presented for evaluation for pruritic rash. Exam is consistent with poison bhumika dermatitis. Will discharge with prednisone. I did advise that she should monitor her BS closely at home. I did refill her trulicity and provided her with contact information for primary care follow up. She should go to the ER for worsening symptoms. Pt in agreement with plan of care. Level of Care: Express Care Visit Vital Signs Vital signs: Vital Signs Temperature 36.1 C L 11/14/24 08:51 Pulse Rate 71 11/14/24 08:51 Respiratory Rate 18 11/14/24 08:51 Blood Pressure 109/61 11/14/24 08:51 Pulse Oximetry 100 11/14/24 08:51 Oxygen Delivery Room Air 11/14/24 08:51 Temperature 36.1 C L 11/14/24 08:51 Pulse Rate 71 11/14/24 08:51 Respiratory Rate 18 11/14/24 08:51 Blood Pressure 109/61 11/14/24 08:51 Pulse Oximetry 100 11/14/24 08:51 Oxygen Delivery Room Air 11/14/24 08:51 Medical Decision Making Vital Signs Vital Signs: Vital Signs Temperature 36.1 C L 11/14/24 08:51 Pulse Rate 71 11/14/24 08:51 Respiratory Rate 18 11/14/24 08:51 Blood Pressure 109/61 11/14/24 08:51 Pulse Oximetry 100 11/14/24 08:51 Oxygen Delivery Room Air 11/14/24 08:51 Temperature 36.1 C L 11/14/24 08:51 Pulse Rate 71 11/14/24 08:51 Respiratory Rate 18 11/14/24 08:51 Blood Pressure 109/61 11/14/24 08:51 Pulse Oximetry 100 11/14/24 08:51 Oxygen Delivery Room Air 11/14/24 08:51 Discharge Plan Discharge Clinical Impression: Poison buhmika dermatitis, Medication refill Patient Disposition: Home Condition: Stable Instructions: Antibiotic Form, Poison Bhumika (ED), Medicine Refill (ED), Type 2 Diabetes Management for Adults (ED) Patient Language: Maltese Prescriptions: New Trulicity 4.5 mg/0.5 mL pen injector 4.5 mg subcut WEEKLY Qty: 2 0RF prednisone 20 mg tablet See Rx Instructions .ROUTE .COMPLEX Qty: 18 0RF Rx Instructions: 2 tabs po daily x 5 days, then 1 tab po daily x 5 days, then 1/2 tab po daily x 6 days No Action mupirocin 2 % ointment 1 applic topical BID 7 Days Qty: 22 0RF Trulicity Rx Instructions: pt is out of and does not have primary Follow-up/Referrals: Emmanuel Boles MD [Physician] - Time of Disposition: 09:16
== END 2024-11-14 09:23 | disposition home or self-care (01) ==
PROVIDERS: Emergency Provider Nurse Practitioner
DX: L23.7 Allergic contact dermatitis due to plants, except food (principal); E11.9 Type 2 diabetes mellitus without complications; Z79.85 Long-term (current) use of injectable non-insulin antidiabetic drugs
CPT/HCPCS: 99211; 99213; G0463

== ENCOUNTER 2024-12-27 09:31 | Emergency (ER) | payer OTHER, SELFPAY ==
--- OUTSIDE RECORDS SUMMARY | 2024-12-27 09:40 | XMS_ITS | Clinical Summary ---
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): Improving but not at goal Anxiety 09/28/2021 Assessment & Plan (05/07/2023 3:53 PM 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): Stable at this time No meds for [...] 1 Assessment & Plan (04/12/2021 9:39 AM 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): Hearing test - [facility] Flonase 2 sprays into each nostril while looking down over the sink, do not sniff in or blow nose after use for at least 30 minutes daily Referred otalgia of both ears 04/12/2021 Assessment & Plan (04/12/2021 9:40 AM 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): TMJ dysfunction discussed and Handout provided Chronic pain of left knee 10/04/2020 Assessment & Plan (02/09/2021 9:05 AM CDT): Continue therapy per Ortho from recovery of her recent surgery Pes anserine bursitis 10/04/2020 Dislocation of left patella 06/16/2020 Overview (06/16/2020): Added automatically from request for surgery [id number] Patellar instability of left knee 06/16/2020 Overview (06/16/2020): Added automatically from request for surgery [id number] Depressive disorder 09/21/2016 Family history of heart disease 09/21/2016 Palpitations 09/21/2016 Tobacco dependence syndrome 09/21/2016 Resolved Problems Problem Noted Date Diagnosed Date Resolved Date Dislocation of jaw 08/08/2022 3 Dysfunction of both eustachian tubes 04/12/2021 09/28/2021 Assessment & Plan (04/12/2021 9:39 AM 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): Hearing test - [facility] Flonase 2 sprays [...] Used Date Smoking Tobacco: Former Cigarettes 1 2018 Vaping Started: 2018 Passive Smoke Exposure: [...] on file Legal 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 Gender Identity Not on file Sexual Orientation [...] this topic Medical Devices Implanted Type Area Manager Diabetes Device Identifier Shelf Expiration Date Model / Serial / Lot [employer] [id number] Seprafilm 6x5in Barrier Adhesion Sterile Disposable Latex Free - [id number] Implanted:Qty: 1 on 04/02/2019 by Irlanda Rodriguez MD at [facility] N/A: Ovary [employer] 10/13/2019 [id number] / / [id number] [employer] [id number] Tightrope Acl Right Device Fixation Titanium Uhmwpe Sterile Latex Free - [id number] Implanted:Qty: 1 on 06/30/2020 by Miko Flores MD at [facility] Left: Knee [employer] 08/12/2024 [id number] / / [id number] Ar[employer]rex Disposible Insturments Kit For Tenodesis Screw Implanted:Qty: 1 on 06/30/2020 by Miko Flores MD at [facility] Left: Knee [employer] 02/12/2025 [id number] / NA / [id number] Description:[facility] ITEM# [id number] IS FLAGGED IN SCCS AND SHOWING ACTIVE CHARGE CODE ASSIGNED [id number] COST EA. 175.00 [id number] Suture [place] Biocomposite Swivelock Implanted:Qty: 1 on 06/30/2020 by Miko Flores MD at [facility] Left: Knee [employer] 02/12/2022 [id number] / NA / [id number] Description:Item has been re quested to add to system and has been approved to charge patient and pay vendor. [id number] Suture [place] Biocomposite Swivelock Implanted:Qty: 1 on 06/30/2020 by Miko Flores MD at [facility] Left: Knee [employer] 02/12/2022 [id number] / NA / [id number] Description:Item has been re quested to add to system and has been approved to charge patient and pay vendor. [facility] [id number] Graft Soft Tissue Posterior Tibialis Tendon - [id number] Implanted:Qty: 1 on 06/30/2020 by Miko Flores MD at [facility] Left: Knee [employer] 02/28/2021 [id number] / / [id number] [employer] Ar-7535 Fiberlink Arthrex Suturetape 1.3mm Tape Suture Nonabsorbable - [id number] Implanted:Qty: 1 on 06/30/2020 by Miko Flores MD at [facility] Left: Knee [employer] 07/13/2024 [id number] / / [id number] Insurance [facility] CHOICE [facility]US [facility] HMO/PPO Address: [address] [address] [place] [address] IDPA Care Teams Furnace Reliner Relationship Specialty Start Date End Date Wayne Montoya MD [address] [place] [address] PCP - General Family Medicine 02/26/22 Dyan Crisostomo PA [address] [place], [place] [id number] 07/20/19 Hamamd Mueller PA [address] [place] [address] [address] [place] [address] Physician Scourer Orthopedic Surgery 06/30/20
[2024-12-27 09:45] VITALS: BP 112/63; PULSE 76; RESP 18; TEMP 36.8; O2SAT 100
--- NOTE | 2024-12-27 10:09 | ED.GENADULT ---
HPI - General Adult General Chief complaint: Urogenital-Female Stated complaint: yeast inf Time Seen by Provider: 12/27/24 10:04 Source: patient and RN notes reviewed Mode of arrival: ambulatory Limitations: no limitations History of Present Illness HPI narrative: Patient presents today complaining of a 4 to five-day history of vulvar itching, burning, and discomfort. Patient the finished a course of amoxicillin for a tooth abscess just prior to symptoms beginning. She has tried 3 nights of an yqwa-vox-oknszhf cream without improvement. She is requesting Diflucan. Patient is also requesting a refill on her Trulicity. She is type 2 diabetic. Her PCP recently left the area and she does not have an appointment with a new PCP for 2 weeks. States her blood sugars are well controlled. Related Data Home Medications ?Medication ?Instructions ?Recorded ?Confirmed ?Last Taken ?Type Trulicity 11/14/24 Unknown History Allergies Allergy/AdvReac Type Severity Reaction Status Date / Time morphine AdvReac Unknown Nausea and Verified 12/27/24 09:51 Vomiting PMFSH Past Medical History Medical History (Updated 12/27/24 @ 10:14 by Yen Rey, [facility], ) Type 2 diabetes mellitus Bronchitis Sinusitis Anxiety and depression Surgical History Surgical History H/O knee surgery Left knee June 2020 Social History Social History Smoking status: Never smoker Substance use: never Living arrangements: with family Additional living arrangements comments: and 3 children Occupation/Education: occupation Gender identity (if verbalized by the patient): Female Comments At time of signature, I have reviewed and agree with nursing past medical, surgical, social and family history unless otherwise noted. Please see nursing chart for further information. There is no relevant family history pertinent to the presenting complaint Exam Narrative: GENERAL: Well-appearing, well-nourished, and in no acute distress. HEAD: Normocephalic, atraumatic. EYES: EOMI. No redness or drainage. Conjunctivae normal. ENT: Mucous membranes pink and moist. NECK: Normal AROM. CHEST: No respiratory distress. EXTREMITIES: Normal range of motion. No edema. SKIN: Warm, dry, no rash. Capillary refill normal. Normal skin turgor. NEURO: No focal deficits. Alert and oriented x3. Gait steady. PSYCH: Normal affect. No signs of depression or anxiety. Course Course Level of Care: Express Care Visit Vital Signs Vital signs: Vital Signs Temperature 98.3 F 12/27/24 09:45 Pulse Rate 76 12/27/24 09:45 Respiratory Rate 18 12/27/24 09:45 Blood Pressure 112/63 12/27/24 09:45 Pulse Oximetry 100 12/27/24 09:45 Oxygen Delivery Room Air 12/27/24 09:45 Temperature 98.3 F 12/27/24 09:45 Pulse Rate 76 12/27/24 09:45 Respiratory Rate 18 12/27/24 09:45 Blood Pressure 112/63 12/27/24 09:45 Pulse Oximetry 100 12/27/24 09:45 Oxygen Delivery Room Air 12/27/24 09:45 Reviewed Medical Decision Making MDM Narrative Medical decision making narrative: Year-old female with history of type 2 diabetes presents today requesting refill of Trulicity and 4 to five-day history of vulvar itching and burning after course of amoxicillin for dental abscess. OTC topical yeast medication without improvement. Prescription for Diflucan sent to pharmacy. Will refill patient's Trulicity until she can see her new PCP on January 14. Vital signs stable. Anticipatory guidance given. Differential Diagnosis Differential Diagnosis: Vulvovaginitis, UTI, medication refill Vital Signs Vital Signs: Vital Signs Temperature 98.3 F 12/27/24 09:45 Pulse Rate 76 12/27/24 09:45 Respiratory Rate 18 12/27/24 09:45 Blood Pressure 112/63 12/27/24 09:45 Pulse Oximetry 100 12/27/24 09:45 Oxygen Delivery Room Air 12/27/24 09:45 Temperature 98.3 F 12/27/24 09:45 Pulse Rate 76 12/27/24 09:45 Respiratory Rate 18 12/27/24 09:45 Blood Pressure 112/63 12/27/24 09:45 Pulse Oximetry 100 12/27/24 09:45 Oxygen Delivery Room Air 12/27/24 09:45 Critical Care Time Critical Care Time Critical Care Time: No Discharge Plan Discharge Clinical Impression: Vaginal yeast infection, Medication refill, Type 2 diabetes mellitus Patient Disposition: Home Condition: Stable Instructions: Yeast Infection (ED) Additional Instructions: Please take the fluconazole as prescribed. Use the Trulicity as directed. Follow-up with your new PCP as scheduled. Patient Language: Bahraini Prescriptions: New fluconazole 150 mg tablet 150 mg PO Q3D Qty: 2 0RF Trulicity 4.5 mg/0.5 mL pen injector 4.5 mg subcut WEEKLY Qty: 2 0RF No Action Trulicity Rx Instructions: pt is out of and does not have primary Trulicity 4.5 mg/0.5 mL pen injector 4.5 mg subcut WEEKLY Qty: 2 0RF Follow-up/Referrals: PHYSICIAN,RECORDS MANAGEMENT COORDINATOR [Primary Care Provider, Internal Medicine] Time of Disposition: 10:15
== END 2024-12-27 10:19 | disposition home or self-care (01) ==
PROVIDERS: Emergency Provider Nurse Practitioner
DX: B37.31 Acute candidiasis of vulva and vagina (principal); E11.9 Type 2 diabetes mellitus without complications; Z79.85 Long-term (current) use of injectable non-insulin antidiabetic drugs
CPT/HCPCS: 99213; G0463

== ENCOUNTER 2025-03-25 12:57 | Emergency (ER) | payer OTHER, SELFPAY ==
[2025-03-25 13:03] VITALS: BP 99/71; PULSE 89; RESP 18; O2SAT 99
--- NOTE | 2025-03-25 14:07 | ED.EAR ---
HPI - Ear Problem General Chief complaint: Ear Stated complaint: Ear Pain Time Seen by Provider: 03/25/25 13:00 Source: patient and RN notes reviewed Mode of arrival: ambulatory Limitations: no limitations History of Present Illness HPI Narrative: 39-year-old female presents Express Care complaining of left ear pain. Patient says symptoms have been going on for the last 2 weeks. Patient says she was recently sick had upper respiratory infection starting at better hours she continues to state that she has congestion and nasal drainage as well. Patient has a left ear hurts worse than right. Patient has been trying [id number]-huu-qtgyjys Flonase without relief. Denies any significant past medical problems. Related Data Home Medications ?Medication ?Instructions ?Recorded ?Confirmed ?Last Taken ?Type Trulicity 11/14/24 Unknown History Allergies Allergy/AdvReac Type Severity Reaction Status Date / Time morphine AdvReac Unknown Nausea and Verified 03/25/25 12:59 Vomiting Review of Systems Review of Systems: CONSTITUTIONAL: Denies fever, chills, or sweats. EYES: Denies visual changes, redness, or discharge. ENT: Denies rhinorrhea,, sore throat. Positive for congestion, postnasal drainage, and otalgia. CARDIOVASCULAR: Denies chest pain, palpitations, or edema. RESPIRATORY: Denies cough or dyspnea. GASTROINTESTINAL: Denies abdominal pain, nausea, vomiting, or diarrhea. GENITOURINARY: Denies dysuria or hematuria. SKIN: Denies rash or itching. MUSCULOSKELETAL: Denies back pain, joint pain, or myalgia. NEUROLOGIC: Denies headache, numbness, or weakness. PSYCHIATRIC: Denies anxiety or depression. All other systems reviewed are negative, except as documented in HPI. [facility] Past Medical History Medical History Type 2 diabetes mellitus Bronchitis Sinusitis Anxiety and depression Surgical History Surgical History H/O knee surgery Left knee June 2020 Social History Social History Smoking status: Never smoker Substance use: never Living arrangements: with family Additional living arrangements comments: and 3 children Occupation/Education: occupation Gender identity (if verbalized by the patient): Female Comments At the time of my signature, I reviewed and agree with the nursing past medical, surgical, social, and family history. There is no relevant family history pertinent to the patient complaint. Exam Narrative: GENERAL: This is a well-nourished, well-developed adult, in no apparent distress. They are non ill-appearing, nontoxic appearing. HEAD: normocephalic, atraumatic. EYES: Sclera clear/white. Conjunctiva normal. Vision is grossly intact. Extraocular movements intact EARS: External ears normal, auditory canals clear and without drainage, TMs normal without perforation .bilateral effusions present. Hearing grossly intact. NOSE: External nose normal with no obvious nasal discharge, nasal turbinates erythematous, no rhinorrhea. THROAT: Mucous membranes moist, posterior pharynx clear, without erythema or swelling. Uvula midline. Cobblestone appearing, postnasal drip present NECK: Neck supple, non-tender without lymphadenopathy, masses or thyromegaly. CARDIOVASCULAR: Regular rate and rhythm without murmurs, gallops, or rubs. RESPIRATORY: Clear to auscultation. Breath sounds equal bilaterally. No wheezes, rales, or rhonchi. SKIN: warm, Dry, intact with no suspicious lesions or rash, good texture and turgor. NEURO: awake, alert, and oriented to person, place and time. There were no obvious focal neurologic abnormalities. EXTREMITIES: No joint tenderness, effusion, or edema noted. BACK: Nontender without deformity. Course Course Level of Care: Express Care Visit Vital Signs Vital signs: Vital Signs Pulse Rate 89 03/25/25 13:03 Respiratory Rate 18 03/25/25 13:03 Blood Pressure 99/71 L 03/25/25 13:03 Pulse Oximetry 99 03/25/25 13:03 Oxygen Delivery Room Air 03/25/25 13:03 Pulse Rate 89 03/25/25 13:03 Respiratory Rate 18 03/25/25 13:03 Blood Pressure 99/71 L 03/25/25 13:03 Pulse Oximetry 99 03/25/25 13:03 Oxygen Delivery Room Air 03/25/25 13:03 [facility] MDM Narrative Medical decision making narrative: No evidence of ear infection, patient may have an underlying sinusitis given length of symptoms and postnasal drainage. Will treat her with Augmentin. Patient requesting fluconazole, saying she gets vaginal yeast infections, will send the course over, advised her not to starting the symptoms start. Patient requesting prescription nasal sprays. Prescription for Flonase and azelastine sent to pharmacy. Discussed physical exam findings. Advised supportive measures and signs/symptoms to go to the ER. Pt is appropriate for outpt treatment and f/u. Differential Diagnosis Differential Diagnosis: Differential diagnostic considerations for upper respiratory infection include upper respiratory infection, croup, otitis media, sinusitis, viral infection, bronchitis, influenza, pharyngitis, strep, uvulitis. Critical Care Time Critical Care Time Critical Care Time: No Discharge Plan Discharge Clinical Impression: Sinusitis Qualifiers: Sinusitis location: unspecified location Chronicity: acute Recurrence: non-recurrent Qualified Code(s): J01.90 - Acute sinusitis, unspecified Patient Disposition: Home Condition: Stable Instructions: Antibiotic Form, Sinusitis (ED) Additional Instructions: Take the antibiotics as directed and complete the course even if you start to feel better. You may use a Neti pot saline rinse 3 times a day with lukewarm distilled water Continue to take Tylenol or Motrin as needed for pain or fevers. Use a humidifier or vaporizer at night. Drink plenty of water. 8-10 glasses per day. Use flonase 2 times per day for 5 days then as needed Take mucinex 2 times per day and be sure to take with 8oz of water. Follow up with Primary provider in 3-5 days Please go to the ER if he develops any difficulty breathing, chest pain, nausea, vomiting worsening symptoms, or any other concerns Patient Language: Moldovan Prescriptions: New fluconazole 150 mg tablet 150 mg PO Q72H Qty: 2 0RF Rx Instructions: May repeat dose after 72 hours if symptoms persist. amoxicillin-pot clavulanate 875-125 mg tablet 1 tablet PO Q12H 7 Days Qty: 14 0RF fluticasone propionate [Allergy Relief (fluticasone)] 50 mcg/actuation spray,suspension 2 spray intranasal DAILY Qty: 16 0RF Rx Instructions: administer into each nostril azelastine 205.5 mcg (0.15 %) spray,non-aerosol 2 spray intranasal DAILY Qty: 11 0RF Rx Instructions: administer into each nostril No Action Trulicity Rx Instructions: pt is out of and does not have primary Trulicity 4.5 mg/0.5 mL pen injector 4.5 mg subcut WEEKLY Qty: 2 0RF fluconazole 150 mg tablet 150 mg PO Q3D Qty: 2 0RF Trulicity 4.5 mg/0.5 mL pen injector 4.5 mg subcut WEEKLY Qty: 2 0RF Follow-up/Referrals: PHYSICIAN NOT ON STAFF,NONSTAFF [Primary Care Provider] Time of Disposition: 13:17
== END 2025-03-25 13:21 | disposition home or self-care (01) ==
DX: J01.90 Acute sinusitis, unspecified (principal); E11.9 Type 2 diabetes mellitus without complications; Z79.85 Long-term (current) use of injectable non-insulin antidiabetic drugs
CPT/HCPCS: 99213; G0463